=== PATIENT | female | born 1960 | race Caucasian/White ===

== ENCOUNTER 2016-12-16 19:01 | Inpatient (IN) | payer MEDICAID ==
[~2016-12-16] VITALS: Ht 165.1 cm; Wt 94.0 kg
[~2016-12-16 19:01] MED LIST: ADVAIR DISK1 IN; ADVAIR DISK1 INH; ADVAIR DISK1 NEB; ADVAIR DISK2 INH; ALBUTERO1 IN; ALBUTEROL S2.5 MG/.5 IN; ALBUTEROL SUL0.083 % IN; ALBUTEROL0.083 % IN; ALBUTEROL2.5 MG/31 IN; ALLEGRA180 MG PO; ALPRAZOLAM0.25 MG OR; ALPRAZOLAM0.5 M1 PO; ALPRAZOLAM0.5 MG PO; ALPRAZOLAM1 M3 PO; ALPRAZOLAM1 MG PO; AMLODIPINE10 MG OR; AMLODIPINE10 MG PO; AMOX/K CLAV875 M1 PO; AMOXICILLIN/CL250 MG PO; AMOXICILLIN250 M1 PO; APRAZOLAM PO; ATROVENT I0.5 MG/VIA IN; ATROVENT INH0.5 MG IN; ATROVENT NAS0.03 %; ATROVENT NAS0.03 % IN; AUGMENTIN250 MG PO; AUGMENTIN500TAB PO; AUGMENTIN875TAB OR; AVIDOXY100 MG PO; BI-PAP IN; CEFTIN250 MG PO; CEFTIN500 MG PO; CETIRIZ/PSE1 TAB PO; CHERATUSSIN OR; CHERATUSSIN PO; CIPRO500 MG PO; CLINDAMYCIN300 M1 PO; CLONAZEP ODT1 MG PO; CLONAZEPAM1 MG PO; DALIRESP500 MCG; DALIRESP500 MCG PO; DARVOCET-N100 MG OR; DELTASONE20 MG PO; DEPO-MEDROL80 MG/ML IM; DEXAMETHASON4 MG OR; DIGITEK0.25 MG OR; DIGOXIN0.125 MG PO; DIPHENHYDRAMINE50 M2 PO; DOCUSATE CAL240 MG PO; DOXYCYCL HYC100 MG PO; DUONEB IN; DUONEB INH; ELIMITE5 % EX; FIORICET PO; FLUTICASONE50 MCG; FUROSEMIDE40 MG PO; HYCODAN1 ML OR; HYDROCOD/HOM1 ML OR; HYDROXYZ HCL50 MG OR; HYDROXYZINE HCL25 MG OR; HYDROXYZINE HCL25 MG PO; IOPHEN C-NR1 ML PO; IPRATROPIUM BROMIDE IN; IPRATROPIUM BROMIDE/ IN; KEFLEX500 MG PO; KETOROLAC60 MG/2 ML IJ; LASIX 20 MG TAB20 MG OR; LASIX 20 MG TAB20 MG PO; LASIX 40 MG TAB40 MG OR; LASIX 40 MG TAB40 MG PO; LASIX40 MG PO; LEVAQUIN500 MG PO; LISINOPRIL10 MG OR; LISINOPRIL10 MG PO; LISINOPRIL5 MG PO; LORTAB 5-325 MG1 TAB PO; LORTAB 5/3255 MG PO; LORTAB 7.5-3251 TAB PO; Levaquin PO; MEDDOSEPAK OR; METFORMIN500 M1 OR; METFORMIN500 M1 PO; METFORMIN500 MG OR; METFORMIN500 MG PO; MORPHINE SUL15 MG PO; NAPROXEN375 MG PO; NAPROXEN500 MG OR; NORCO1 TA1 PO; NORVASC10 MG OR; OMNICEF300 MG PO; ONDANSETRON4 MG PO; OXY1; OXYGEN NAB; POT CHLORIDE10 ME1 PO; POT CHLORIDE10 MEQ OR; PREDNISONE1 MG PO; PREDNISONE10 MG OR; PREDNISONE10 MG PO; PREDNISONE20 MG PO; PREDNISONE5 MG PO; PROAIR HFA IN; PROVENTIL0.083 % IN; PULMICORT0.25 MG/2 IN; PULMICORT90 MCG IN; RESTORIL15 M1 OR; RESTORIL15 M1 PO; RESTORIL15 MG PO; ROBITUSSIN AC10 ML PO; SINGULAIR 10 MG10 MG PO; SINGULAIR OR; SINGULAIR PO; SINGULAIR10 MG PO; SMZ-TMP DS1 TAB PO; SOLU-MEDROL125 MG IM; SPIRIVA IN; STOOL SOFTNR OR; TEMAZEPAM15 MG PO; TESSALON PER100 MG PO; THEO-24300 MG OR; TORADOL30 MG/VIAL IJ; TORADOL30 MG/VIAL IM; TRAMADOL HCL50 MG PO; ULTRAM50 M1 PO; VENTOLIN HFA IN; VISTARIL25 MG PO; VOSOL2 % OT; XANAX0.25 MG OR; XANAX0.25 MG PO; XANAX1 MG PO; ZITHROMAX250 MG PO; ZOFRAN ODT4 MG PO; [UNRECOGNIZED DRUG - OTHER] EX
[2016-12-16 19:37] LABS: HEMATOCRIT 43.1 % (37.0-47.0); HEMOGLOBIN 13.3 g/dl (12.0-16.0); IMMATURE GRANULOCYTES 1.2 % (0.0-1.0); MEAN CELL VOLUME 90.4 fL CALC (80.0-100.0); MEAN CORPUSCULAR HGB 27.9 pG CALC (26.0-32.0); MEAN CORPUSCULAR HGB CONC 30.9 g/L CALC (32.0-36.0); NEUT# 10.12 thou/uL (2.00-7.15); RED BLOOD COUNT 4.77 mill/uL (4.20-5.60); RED CELL DISTRI WIDTH 13.4 % (11.5-15.5)
[2016-12-16 19:52] LABS: ALBUMIN 4.3 g/dL (3.2-5.0); ALKALINE PHOSPHATASE 98 u/l (38-126); ANION GAP 15 (6-22 (CALC)); BILIRUBIN, TOTAL 0.4 mg/dL (0.0-1.4); BUN 13 mg/dL (7-17); BUN/CREATININE RATIO 20 (12-20 (CALC)); CALCIUM 9.9 mg/dL (8.4-10.2); CARBON DIOXIDE 32 mmol/l (22-30); CHLORIDE 98 mmol/l (95-108); CREATININE 0.7 mg/dL (0.5-1.0); GFR > 60 ML/MIN (>=60 (CALC)); GFR FOR AFR.AMER. > 60 ML/MIN (>=60 (CALC)); GLUCOSE 142 mg/dL (65-105); POTASSIUM 4.3 mmol/l (3.5-5.1); SGOT/AST 18 u/l (14-36); SGPT/ALT 23 u/l (9-52); SODIUM 142 mmol/l (137-146); TOTAL PROTEIN 8.5 g/dL (6.3-8.2)
[2016-12-16 20:04] LABS: MYOGLOBIN 43 ng/mL (0 - 62)
[2016-12-16] MEDS ORDERED: XANAX1 MG PO (20:04)
[2016-12-16 21:16] VITALS: BP 130/82
[2016-12-16 22:00] VITALS: BP 124/69
[2016-12-16 22:15] VITALS: BP 144/80
[2016-12-16 22:30] VITALS: BP 110/67
[2016-12-16 22:45] VITALS: BP 126/78
[2016-12-16 23:00] VITALS: BP 126/78
[2016-12-16 23:12] LABS: URINE BILIRUBIN - DIPSTICK NEGATIVE (NEGATIVE); URINE BLOOD DIPSTICK NEGATIVE (NEGATIVE); URINE CLARITY SLIGHT CLOUDY; URINE COLOR YELLOW; URINE GLUCOSE - DIPSTICK NEGATIVE (NEGATIVE); URINE KETONE TRACE mg/dL (NEGATIVE); URINE LEUK ESTERASE NEGATIVE (NEGATIVE); URINE NITRITE - DIPSTICK NEGATIVE (Negative); URINE PH 5.5 (4.5-8.0); URINE PROTEIN - DIPSTICK NEGATIVE (NEG-TRACE); URINE SPECIFIC GRAVITY 1.015; URINE UROBILINOGEN - DIPSTICK 0.2 E.U./dL (0.2)
[2016-12-17] VITALS (14 sets, daily range): BP systolic 97–154; BP diastolic 56–88
[2016-12-17 05:10] LABS: HEMATOCRIT 39.9 % (37.0-47.0); HEMOGLOBIN 12.4 g/dl (12.0-16.0); IMMATURE GRANULOCYTES 0.9 % (0.0-1.0); MEAN CELL VOLUME 89.7 fL CALC (80.0-100.0); MEAN CORPUSCULAR HGB 27.9 pG CALC (26.0-32.0); MEAN CORPUSCULAR HGB CONC 31.1 g/L CALC (32.0-36.0); NEUT# 11.41 thou/uL (2.00-7.15); RED BLOOD COUNT 4.45 mill/uL (4.20-5.60); RED CELL DISTRI WIDTH 13.2 % (11.5-15.5)
[2016-12-17 05:37] LABS: ANION GAP 16 (6-22 (CALC)); BUN 16 mg/dL (7-17); BUN/CREATININE RATIO 27 (12-20 (CALC)); CALCIUM 9.5 mg/dL (8.4-10.2); CARBON DIOXIDE 27 mmol/l (22-30); CHLORIDE 100 mmol/l (95-108); CREATININE 0.6 mg/dL (0.5-1.0); GFR > 60 ML/MIN (>=60 (CALC)); GFR FOR AFR.AMER. > 60 ML/MIN (>=60 (CALC)); GLUCOSE 256 mg/dL (65-105); SODIUM 138 mmol/l (137-146)
[2016-12-17 05:39] LABS: POTASSIUM 5.2 mmol/l (3.5-5.1)
[2016-12-18] VITALS (8 sets, daily range): BP systolic 98–148; BP diastolic 64–76
[2016-12-18 07:02] LABS: ANION GAP 15 (6-22 (CALC)); BUN 23 mg/dL (7-17); BUN/CREATININE RATIO 33 (12-20 (CALC)); CALCIUM 9.7 mg/dL (8.4-10.2); CARBON DIOXIDE 31 mmol/l (22-30); CHLORIDE 97 mmol/l (95-108); CREATININE 0.7 mg/dL (0.5-1.0); GFR > 60 ML/MIN (>=60 (CALC)); GFR FOR AFR.AMER. > 60 ML/MIN (>=60 (CALC)); GLUCOSE 285 mg/dL (65-105); MAGNESIUM 1.8 mg/dL (1.6-2.3); POTASSIUM 4.8 mmol/l (3.5-5.1); SODIUM 138 mmol/l (137-146)
[2016-12-19 00:17] VITALS: BP 102/58
[2016-12-19 06:00] VITALS: BP 116/65
[2016-12-19 07:31] VITALS: BP 121/59
[2016-12-19 07:35] VITALS: BP 121/59
[2016-12-19] MEDS ORDERED: XANAX1 MG PO (12:11)
[2016-12-19] MEDS ORDERED: DOXYCYC MONO100 M2 PO (12:12)
[2016-12-19] MEDS ORDERED: PREDNISONE10 MG PO (12:13)
== END 2016-12-19 13:50 | disposition home or self-care (01) | DRG 191 ==
LOC: ENPENDDIS → ED 19:01 → ED-I 20:21 → ED 20:46 → ICU 20:47 → MS2 12-18 13:45
PROVIDERS: Emergency Medicine; Internal Medicine; ADMIT Internal Medicine; ATTEND Internal Medicine
PROC: 5A09357 Assistance with Respiratory Ventilation, Less than 24 Consecutive Hours, Continuous Positive Airway Pressure (ICD-10-PCS; principal; 2016-12-16)
DX: J44.1 Chronic obstructive pulmonary disease with (acute) exacerbation (principal); I50.22 Chronic systolic (congestive) heart failure; J96.11 Chronic respiratory failure with hypoxia; I11.0 Hypertensive heart disease with heart failure; Z99.81 Dependence on supplemental oxygen; J96.12 Chronic respiratory failure with hypercapnia; J44.0 Chronic obstructive pulmonary disease with (acute) lower respiratory infection; J20.9 Acute bronchitis, unspecified; A08.4 Viral intestinal infection, unspecified; E11.9 Type 2 diabetes mellitus without complications; I25.10 Atherosclerotic heart disease of native coronary artery without angina pectoris; G47.33 Obstructive sleep apnea (adult) (pediatric); E78.5 Hyperlipidemia, unspecified; M81.0 Age-related osteoporosis without current pathological fracture; F41.1 Generalized anxiety disorder; G89.29 Other chronic pain; R23.8 Other skin changes; Z87.891 Personal history of nicotine dependence; Z79.84 Long term (current) use of oral hypoglycemic drugs
CPT/HCPCS: J1650

== ENCOUNTER 2017-02-11 14:01 | Inpatient (IN) | payer MEDICAID ==
[~2017-02-11] VITALS: Ht 165.1 cm; Wt 95.0 kg
[~2017-02-11 14:01] MED LIST changes: +DOXYCYC MONO100 M2 PO
[2017-02-11 14:22] LABS: HEMATOCRIT 39.4 % (37.0-47.0); HEMOGLOBIN 12.3 g/dl (12.0-16.0); MEAN CORPUSCULAR HGB 28.1 pG CALC (26.0-32.0); MEAN CORPUSCULAR HGB CONC 31.2 g/L CALC (32.0-36.0); NEUT# 11.23 thou/uL (2.00-7.15); RED BLOOD COUNT 4.38 mill/uL (4.20-5.60); RED CELL DISTRI WIDTH 13.7 % (11.5-15.5)
[2017-02-11] MEDS ORDERED: PREDNISONE10 MG PO (14:27)
[2017-02-11] MEDS ORDERED: NORCO1 TA1 PO (14:28)
[2017-02-11 14:35] LABS: ALBUMIN 4.3 g/dL (3.2-5.0); ALKALINE PHOSPHATASE 79 u/l (38-126); ANION GAP 18 (6-22 (CALC)); BILIRUBIN, TOTAL 0.5 mg/dL (0.0-1.4); BUN 14 mg/dL (7-17); BUN/CREATININE RATIO 23 (12-20 (CALC)); CALCIUM 9.6 mg/dL (8.4-10.2); CARBON DIOXIDE 29 mmol/l (22-30); CHLORIDE 98 mmol/l (95-108); CREATININE 0.6 mg/dL (0.5-1.0); GFR > 60 ML/MIN (>=60 (CALC)); GFR FOR AFR.AMER. > 60 ML/MIN (>=60 (CALC)); GLUCOSE 221 mg/dL (65-105); POTASSIUM 4.8 mmol/l (3.5-5.1); SGOT/AST 22 u/l (14-36); SGPT/ALT 36 u/l (9-52); SODIUM 139 mmol/l (137-146); TOTAL PROTEIN 7.2 g/dL (6.3-8.2)
[2017-02-11 14:47] LABS: MYOGLOBIN 26 ng/mL (0 - 62)
[2017-02-11 16:07] LABS: URINE BILIRUBIN - DIPSTICK NEGATIVE (NEGATIVE); URINE BLOOD DIPSTICK NEGATIVE (NEGATIVE); URINE CLARITY CLEAR; URINE COLOR YELLOW; URINE GLUCOSE - DIPSTICK NEGATIVE (NEGATIVE); URINE KETONE NEGATIVE (NEGATIVE); URINE LEUK ESTERASE TRACE (NEGATIVE); URINE NITRITE - DIPSTICK NEGATIVE (Negative); URINE PH 5.5 (4.5-8.0); URINE PROTEIN - DIPSTICK NEGATIVE (NEG-TRACE); URINE SPECIFIC GRAVITY <=1.005; URINE UROBILINOGEN - DIPSTICK 0.2 E.U./dL (0.2)
[2017-02-11 17:55] LABS: BARBITURATES NEGATIVE (NEGATIVE); COCAINE NEGATIVE (NEGATIVE); METHADONE NEGATIVE (NEGATIVE); OXCYCODONE NEGATIVE (NEGATIVE); TETRAHYDROCANNABIONOL NEGATIVE (NEGATIVE); TRICYLIC ANTIDEPRESSANTS NEGATIVE (NEGATIVE)
[2017-02-11 20:00] VITALS: BP 103/53; BP 127/69
[2017-02-11 21:00] VITALS: BP 108/55; BP 115/60
[2017-02-11 22:00] VITALS: BP 115/60
[2017-02-11 23:00] VITALS: BP 117/56
[2017-02-12] VITALS (23 sets, daily range): BP systolic 90–117; BP diastolic 47–66
[2017-02-12 06:18] LABS: ANION GAP 15 (6-22 (CALC)); BUN 17 mg/dL (7-17); BUN/CREATININE RATIO 27 (12-20 (CALC)); CALCIUM 9.7 mg/dL (8.4-10.2); CARBON DIOXIDE 32 mmol/l (22-30); CHLORIDE 100 mmol/l (95-108); CREATININE 0.6 mg/dL (0.5-1.0); GFR > 60 ML/MIN (>=60 (CALC)); GFR FOR AFR.AMER. > 60 ML/MIN (>=60 (CALC)); GLUCOSE 258 mg/dL (65-105); MAGNESIUM 1.6 mg/dL (1.6-2.3); POTASSIUM 4.9 mmol/l (3.5-5.1); SODIUM 141 mmol/l (137-146)
[2017-02-13] VITALS (9 sets, daily range): BP systolic 83–116; BP diastolic 43–61
[2017-02-13 04:55] LABS: ANION GAP 13 (6-22 (CALC)); BUN 24 mg/dL (7-17); BUN/CREATININE RATIO 37 (12-20 (CALC)); CALCIUM 9.2 mg/dL (8.4-10.2); CARBON DIOXIDE 31 mmol/l (22-30); CHLORIDE 101 mmol/l (95-108); CREATININE 0.6 mg/dL (0.5-1.0); GFR > 60 ML/MIN (>=60 (CALC)); GFR FOR AFR.AMER. > 60 ML/MIN (>=60 (CALC)); GLUCOSE 307 mg/dL (65-105); MAGNESIUM 1.9 mg/dL (1.6-2.3); POTASSIUM 4.9 mmol/l (3.5-5.1); SODIUM 140 mmol/l (137-146)
[2017-02-13] MEDS ORDERED: XANAX1 MG PO (11:12)
[2017-02-13] MEDS ORDERED: PREDNISONE10 MG PO (11:12)
[2017-02-13] MEDS ORDERED: LEVEMIR FL100 UNIT/M SC (11:14)
[2017-02-13] MEDS ORDERED: ROBITUSSIN AC10 ML PO (11:15)
[2017-02-13] MEDS ORDERED: DOXYCYCL HYC100 MG PO (11:15)
[2017-02-13] MEDS ORDERED: CYMBALTA20 MG PO (11:16)
== END 2017-02-13 13:00 | disposition home or self-care (01) | DRG 189 ==
LOC: ENPENDDIS → ED 14:01 → ED-I 15:54 → ED 16:17 → ICU 16:18
PROVIDERS: Emergency Medicine; Internal Medicine; ADMIT Internal Medicine; ATTEND Internal Medicine
PROC: 5A09457 Assistance with Respiratory Ventilation, 24-96 Consecutive Hours, Continuous Positive Airway Pressure (ICD-10-PCS; principal; 2017-02-11)
DX: J96.22 Acute and chronic respiratory failure with hypercapnia (principal); Z99.81 Dependence on supplemental oxygen; J44.0 Chronic obstructive pulmonary disease with (acute) lower respiratory infection; J44.1 Chronic obstructive pulmonary disease with (acute) exacerbation; J96.21 Acute and chronic respiratory failure with hypoxia; J20.9 Acute bronchitis, unspecified; M81.8 Other osteoporosis without current pathological fracture; F41.1 Generalized anxiety disorder; G89.29 Other chronic pain; M54.9 Dorsalgia, unspecified; E09.65 Drug or chemical induced diabetes mellitus with hyperglycemia; T38.0X5A Adverse effect of glucocorticoids and synthetic analogues, initial encounter; Z87.891 Personal history of nicotine dependence; Z79.84 Long term (current) use of oral hypoglycemic drugs

== ENCOUNTER 2017-02-28 16:09 | Inpatient (IN) | payer MEDICAID ==
[~2017-02-28] VITALS: Ht 165.1 cm; Wt 75.0 kg
[2017-02-28] VITALS (7 sets, daily range): BP systolic 107–138; BP diastolic 71–79
[~2017-02-28 16:09] MED LIST changes: +CYMBALTA20 MG PO; +LEVEMIR FL100 UNIT/M SC
--- NOTE | 2017-02-28 16:10 | NUR ---
PT IMMEDIATELY TO ROOM [address] MOTA TO BEDSIDE. PT PLACED ON PRODUCT MANAGEMENT INTERN, PT STATES TO , "CAN I PLEASE HAVE THE BIPAP, DOC? I KNOW IT'LL HELP ME"
[2017-02-28 16:55] LABS: HEMATOCRIT 40.2 % (37.0-47.0); HEMOGLOBIN 12.4 g/dl (12.0-16.0); IMMATURE GRANULOCYTES 1.3 % (0.0-1.0); MEAN CELL VOLUME 91.8 fL CALC (80.0-100.0); MEAN CORPUSCULAR HGB 28.3 pG CALC (26.0-32.0); MEAN CORPUSCULAR HGB CONC 30.8 g/L CALC (32.0-36.0); NEUT# 9.76 thou/uL (2.00-7.15); RED BLOOD COUNT 4.38 mill/uL (4.20-5.60); RED CELL DISTRI WIDTH 13.5 % (11.5-15.5)
--- NOTE | 2017-02-28 17:05 | NUR ---
RT IN TO PLACE BI-PAP
[2017-02-28 17:23] LABS: ALBUMIN 4.1 g/dL (3.2-5.0); ALKALINE PHOSPHATASE 89 u/l (38-126); ANION GAP 14 (6-22 (CALC)); BILIRUBIN, TOTAL 0.3 mg/dL (0.0-1.4); BUN 17 mg/dL (7-17); BUN/CREATININE RATIO 25 (12-20 (CALC)); CALCIUM 9.3 mg/dL (8.4-10.2); CARBON DIOXIDE 36 mmol/l (22-30); CHLORIDE 96 mmol/l (95-108); CREATININE 0.7 mg/dL (0.5-1.0); GFR > 60 ML/MIN (>=60 (CALC)); GFR FOR AFR.AMER. > 60 ML/MIN (>=60 (CALC)); GLUCOSE 271 mg/dL (65-105); POTASSIUM 4.4 mmol/l (3.5-5.1); SGOT/AST 17 u/l (14-36); SGPT/ALT 42 u/l (9-52); SODIUM 141 mmol/l (137-146); TOTAL PROTEIN 7.1 g/dL (6.3-8.2)
[2017-02-28 17:35] LABS: MYOGLOBIN 23 ng/mL (0 - 62)
--- NOTE | 2017-02-28 17:55 | NUR ---
IN TO ASSIST TO BSC, Pt BACK TO BED AND STATES "WHERE'd MY IV GO?" S.L. IN RAC GONE. NEW IV INITIATED /c BRISK BLOOD RETURN NOTED.
--- NOTE | 2017-02-28 18:28 | NUR ---
IN TO ASSESS, ASSESSMENT UNCHANGED
[2017-02-28] MEDS ORDERED: LISINOPRIL5 MG PO (19:02)
[2017-02-28] MEDS ORDERED: PREDNISONE10 MG PO (19:03)
[2017-02-28] MEDS ORDERED: METFORMIN500 MG PO (19:04)
[2017-02-28] MEDS ORDERED: RESTORIL15 MG PO (19:05)
[2017-02-28] MEDS ORDERED: MONTELUKAST SOD10 MG PO (19:05)
--- NOTE | 2017-02-28 19:05 | NUR ---
CARE OF Pt ENDORSED TO Mary Anne GONZALEZ
[2017-02-28] MEDS ORDERED: DALIRESP500 MCG PO (19:06)
[2017-02-28] MEDS ORDERED: NORCO1 TA1 PO (19:07)
[2017-02-28] MEDS ORDERED: XANAX1 MG PO (19:07)
--- NOTE | 2017-02-28 19:22 | NUR ---
RECEIVED REPORT FROM LISA NOLASCO PT HAS ADMIT ORDERS, WAITING ON ICU TO TAKE REPORT. PT OFFERED DINNER TRAY AND GRILLED CHEESE BURNT SO PT ASKED FOR TURKEY SANDWICH. PT THEN REFUSED SANDWICH STATING BREAD IS HARD. PT TOOK DIET SODA AND PINEAPPLE OFF TRAY.
--- NOTE | 2017-02-28 19:56 | NUR ---
Admission Note Report Given to: LISA MCNAIR. Transported by: Wheelchair X Stretcher Transported with: X Nurse Transporter X Patent IV X O2 X Meat Pickler
--- NOTE | 2017-02-28 20:08 | NUR ---
PT. ARRIVES BY ER STRETCHER WITH BIPAP IN PLACE AT THIS TIME. PT. AMBULATORY WITH STEADY GAIT FROM ER STRETCHER TO STANDING SCALE, AND THEN TO ICU BED IN NO DISTRESS. REFUSES TO REMOVE PANTS AT THIS TIME. RESPS EVEN, SHALLOW, SLIGHTLY LABORED. SKIN COOL AND DRY. PEARL. GUZMAN. C/O 02/14 CHRONIC ABDOMINAL PAIN FROM HER "GALLBLADDER". STATES HER PAIN IS NO DIFFERENT THAN NORMAL AND SHE USUALLY TAKES HYDROCODONE AND "IT DOESN'T HELP". DIMINISHED LUNG SOUND THROUGHOUT WITH SCANT EXPIRATORY WHEEZES. 1+ EDEMA NOTED BILATERALLY. KLEVER REYES APPLIED AT THIS TIME.
--- NOTE | 2017-02-28 23:30 | NUR ---
PT. PROVIDED WITH TURKEY SANDWICH PER HER REQUEST. PLACED ON 4L NC FROM BEING ON BIPAP AT THIS TIME. NEW ORDERS RECEIVED FROM DR. YOUNG FOR PATIENT ROUTINE ANXIOLYTICS. WILL CONTINUE TO MONITOR FOR RESPIRATORY DISTRESS AND ANXIETY. PT. DENIES COMPLAINTS OR NEEDS AT THIS TIME.
[2017-03-01] VITALS (17 sets, daily range): BP systolic 78–129; BP diastolic 49–88
--- NOTE | 2017-03-01 00:10 | NUR ---
PT. PLACED BACK ON BIPAP AT THIS TIME PER HER REQUEST. RT BACK AT BEDSIDE TO ADJUST MASK AND BIPAP. PT. OFFERED ANXIOLYTIC AND HER PAIN MEDICATIONS. UPDATED ON PLAN OF CARE AND MEDICATION REGIMENS. WILL CONTINUE TO ASSESS. VSS. CALL LIGHT REMAINS WITHIN REACH.
--- NOTE | 2017-03-01 02:05 | NUR ---
PT. RESTING IN BED IN NO DISTRESS. SLEEPING WITH BIPAP IN PLACE. VSS. SLIGHTLY HYPOTENSIVE AT THIS TIME. CALL LIGHT REMAINS WITHIN REACH. VOICES NO COMPLAINTS OR CONCERNS. WILL CONTINUE TO MONITOR
--- NOTE | 2017-03-01 04:00 | NUR ---
PT. REMAINS RESTFUL ON THE BIPAP. SKIN REMAINS WARM AND DRY. AFEBRILE. DENIES COMPLAINTS OF PAIN OR NEED AT THIS TIME. VSS. WILL CONTINUE TO MONITOR.
--- NOTE | 2017-03-01 05:30 | NUR ---
PT. AWAKE, ALERT, ORIENTED X 3. ASSISTED TO BEDSIDE COMMODE AT THIS TIME. AMBULATORY WITH SLOW STEADY GAIT. BIPAP REMAINS IN PLACE.
--- NOTE | 2017-03-01 07:15 | NUR ---
PT LAYING IN WATCHING TV, A & O X3, PERRL, HR 97, RESP. 22, BP 102/64, O2 94% ON BIPAP WITH 36% O2, DIMINISHED LUNG SOUNDS IN ALL LUNG BERNARDO WITH EXPIRATORY WHEEZES IN RUL & KARMEN, RUQ TENDERNESS, 20G RAC IV SALINE LOCKED, BILAT LEG EDEMA, AM ASSESSMENT COMPLETE, SEE INTERVENTION, SAFETY MEASURES REINFORCED, CALL ESCOBAR WITHIN REACH
--- NOTE | 2017-03-01 07:25 | NUR ---
PT TAKEN OFF BIPAP FOR AM MEAL
--- NOTE | 2017-03-01 07:30 | NUR ---
SETUP ASSISTANCE PROVIDED WITH ASHLEY CHRISTIANSON
--- NOTE | 2017-03-01 08:15 | NUR ---
PT LAYING IN BED RESTING WITH EYES OPEN, VERBALIZES NO COMPLAINTS, PT REMINDED TO CALL FOR ASSISTANCE, CALL ESCOBAR WITHIN REACH
--- NOTE | 2017-03-01 09:20 | NUR ---
PT ASSISTED TO BSC AND BACK TO BED, PT AMBULATED WITH A SLOW STEADY GAIT, TOLERATED WELL, CALL ESCOBAR WITHIN REACH
--- NOTE | 2017-03-01 10:30 | NUR ---
PT LAYING IN BED RESTING WITH EYES CLOSED, AROUSES EASILY TO VERBAL STIMULI, BREATHING UNLABORED, CALL ESCOBAR WITHIN REACH
--- NOTE | 2017-03-01 11:30 | NUR ---
SETUP ASSISTANCE PROVIDED WITH LUNCH TRAY
--- NOTE | 2017-03-01 12:05 | NUR ---
PT LAYING IN BED TALKING ON HER CELL PHONE, NO S/S OF DISTRESS, CALL ESCOBAR WITHIN REACH
--- NOTE | 2017-03-01 14:20 | NUR ---
PT RESTING IN BED WITH EYES CLOSED AROUSES EASILY TO VERBAL STIMULI, RESP. UNLABORED, CALL ESCOBAR WITHIN REACH
--- NOTE | 2017-03-01 16:40 | NUR ---
PT SITTING UP IN BED TALKING ON THE PHONE, NO S/S OF DISTRESS
--- NOTE | 2017-03-01 20:00 | NUR ---
PT. AWAKE, ALERT, ORIENTED X 3. SKIN WARM AND DRY. PETRA. PT. ASSISTED TO BEDSIDE COMMODE. LUNGS DIMINIESHED THROUGHOUT WITH EXP WHEEZES. PT. REQUESTING TO BE PLACED ON BIPAP AT THIS TIME. PT. PLACED ON PER HER REQUEST. NO DISTRESS, REMAINS WITH HER NORMAL SHALLOW RESPIRATIONS.
--- NOTE | 2017-03-01 21:35 | NUR ---
REPORT TO VICKI NICK.
--- NOTE | 2017-03-01 21:50 | NUR ---
PT TRANSFERRED TO MED/SURG VIA HOSPITAL BED IN STABLE CONDITION ACCOMPANIED BY TABBYRN;PT ORIENTED TO ROOM AND CALL LIGHT SYSTEM AND VERBALIZES UNDERSTANDING;ASSESSMENT COMPLETED;IV SITE TO RAC FLUSHED AND PATENT;PT IS ON HER HOME BIPAP AT THIS TIME 02 SATS @ 97%;PT A&O X 3;PT DENIES ANY NEEDS AT THIS TIME;SAFETY PRECAUTIONS REINFORCED;FALL PRECAUTIONS IN PLACE;CALL LIGHT IN REACH;WILL CONTINUE TO MONITOR
--- NOTE | 2017-03-01 23:50 | NUR ---
PT RESTING IN SEMI FOWLERS POSITION WITH HOME BIPAP ON;PT DENIES ANY PAIN AT THIS TIME AND REFUSES SCHEDULED LORTAB;COMMODE AT BEDSIDE;CALL LIGHT WITHIN REACH;WILL CONTINUE TO MONITOR
[2017-03-02 04:00] VITALS: BP 95/60
--- NOTE | 2017-03-02 04:05 | NUR ---
PT RESTING IN SEMI FOWLERS POSITION;PTS HOME BIPAP ON AT THIS TIME WITH RESPIRATIONS EVEN AND UNLABORED;PT REFUSES SCHEDULED LORTAB DENYING ANY PAIN;TELE MONITOR IN PLACE;PT EDUCATED TO CALL FOR ASSISTANCE IF NEEDED;COMMODE AT BEDSIDE;CALL LIGHT WITHIN REACH;WILL CONTINUE TO MONITOR
[2017-03-02 06:02] LABS: HEMATOCRIT 39.9 % (37.0-47.0); HEMOGLOBIN 12.2 g/dl (12.0-16.0); IMMATURE GRANULOCYTES 1.3 % (0.0-1.0); MEAN CELL VOLUME 92.4 fL CALC (80.0-100.0); MEAN CORPUSCULAR HGB 28.2 pG CALC (26.0-32.0); MEAN CORPUSCULAR HGB CONC 30.6 g/L CALC (32.0-36.0); NEUT# 14.75 thou/uL (2.00-7.15); RED BLOOD COUNT 4.32 mill/uL (4.20-5.60); RED CELL DISTRI WIDTH 13.6 % (11.5-15.5)
[2017-03-02 06:16] LABS: ANION GAP 17 (6-22 (CALC)); BUN 27 mg/dL (7-17); BUN/CREATININE RATIO 40 (12-20 (CALC)); CALCIUM 9.3 mg/dL (8.4-10.2); CARBON DIOXIDE 31 mmol/l (22-30); CHLORIDE 95 mmol/l (95-108); CREATININE 0.7 mg/dL (0.5-1.0); GFR > 60 ML/MIN (>=60 (CALC)); GFR FOR AFR.AMER. > 60 ML/MIN (>=60 (CALC)); GLUCOSE 333 mg/dL (65-105); POTASSIUM 4.4 mmol/l (3.5-5.1); SODIUM 138 mmol/l (137-146)
--- NOTE | 2017-03-02 07:00 | NUR ---
RECEIVED BEDSIDE REPORT FROM PARK COHEN. RESTING IN BED WITH EYES CLOSED. RESPS VIA HOME BIPAP, TELE MONITOR IN PLACE. VOICES NO NEEDS AT THIS TIME. PLAN OF CARE DISCUSSED. SAFETY PRECAUTIONS REINFORCED. BED IN LOWEST POSITION WITH WHEELS LOCKED. CALL LIGHT WITHIN REACH. ENCOURAGED PT TO CALL FOR ANY NEEDS.
[2017-03-02 07:45] VITALS: BP 115/64
[2017-03-02 11:00] VITALS: BP 130/47
--- NOTE | 2017-03-02 13:01 | NUR ---
SITTING ON EDGE OF BED. RESPS EVEN AND UNLABORED ON O2 VIA NC, TELE MONITOR IN PLACE. MEDICATED WITH ROBITUSSIN PO C/O COUGH. WILL CONTINUE TO MONITOR.
--- NOTE | 2017-03-02 13:20 | NUR ---
DR HERNANDEZ IN TO SEE PT, NEW ORDERS RECEIVED.
[2017-03-02 16:05] VITALS: BP 132/77
--- NOTE | 2017-03-02 18:24 | NUR ---
SITTING ON SIDE OF BED EATING MEAL. RESPS EVEN AN DUNLABORED ON O2 VIA NC, TELE MONITOR IN PLACE. MEDICATED WITH LORTAB PO FOR C/O 710 ABD PAIN. CALL LIGHT WITHIN REACH. WILL CONTINUE TO MONITOR.
[2017-03-02 19:45] VITALS: BP 138/74
--- NOTE | 2017-03-02 21:15 | NUR ---
PT RESTING AT BEDSIDE;ASSESSMENT COMPLETED;PT DENIES ANY PAIN OR NEEDS AT THIS TIME;02 ON @ 4 LITERS HUM.VIA NC;HOME BIPAP AT BEDSIDE; IV SITE TO RAC FLUSHED AND PATENT;TELE MONITOR IN PLACE;SKIN INTACT;PT EDUCATED TO CALL FOR ASSISTANCE IF NEEDED;SAFETY PRECAUTIONS REINFORCED;BED IN LOWEST POSITION WITH COMMODE AT BEDSIDE;CALL LIGHT IN REACH;WILL CONTINUE TO MONITOR
[2017-03-03 00:35] VITALS: BP 132/78
--- NOTE | 2017-03-03 00:35 | NUR ---
PT APPEARS TO BE SLEEPING AT THIS TIME;NO S/S OF DISTRESS NOTED;RESPIRATIONS EVEN AND UNLABORED ON HOME BIPAP;TELE MONITOR IN PLACE;BED IN LOWEST POSITION WITH CALL LIGHT IN REACH;WILL CONTINUE TO MONITOR
[2017-03-03 04:55] VITALS: BP 138/72
--- NOTE | 2017-03-03 04:55 | NUR ---
PT APPEARS TO BE SLEEPING IN SEMI FOWLERS POSITION;HOME BIPAP ON WITH RESPIRATIONS EVEN AND UNLABORED;WOKE PT TO OBTAIN MORNING VS AND LABS;PT DENIES ANY NEEDS OR PAINS AT THIS TIME;TELE MONITOR IN PLACE;CALL LIGHT IN REACH;WILL CONTINUE TO MONITOR
[2017-03-03 05:22] LABS: HEMATOCRIT 39.5 % (37.0-47.0); HEMOGLOBIN 12.2 g/dl (12.0-16.0); IMMATURE GRANULOCYTES 1.2 % (0.0-1.0); MEAN CELL VOLUME 91.6 fL CALC (80.0-100.0); MEAN CORPUSCULAR HGB 28.3 pG CALC (26.0-32.0); MEAN CORPUSCULAR HGB CONC 30.9 g/L CALC (32.0-36.0); NEUT# 11.09 thou/uL (2.00-7.15); RED BLOOD COUNT 4.31 mill/uL (4.20-5.60); RED CELL DISTRI WIDTH 13.9 % (11.5-15.5)
[2017-03-03 05:46] LABS: ANION GAP 14 (6-22 (CALC)); BUN 30 mg/dL (7-17); BUN/CREATININE RATIO 47 (12-20 (CALC)); CALCIUM 9.6 mg/dL (8.4-10.2); CARBON DIOXIDE 32 mmol/l (22-30); CHLORIDE 96 mmol/l (95-108); CREATININE 0.6 mg/dL (0.5-1.0); GFR > 60 ML/MIN (>=60 (CALC)); GFR FOR AFR.AMER. > 60 ML/MIN (>=60 (CALC)); GLUCOSE 312 mg/dL (65-105); POTASSIUM 4.4 mmol/l (3.5-5.1); SODIUM 138 mmol/l (137-146)
--- NOTE | 2017-03-03 07:00 | NUR ---
RECEIVED BEDSIDE REPORT FROM PARK COHEN. RESTING IN SEMI FOWLERS WITH EYES OPEN. RESPS EVEN AND UNLABORED ON HOME BIPAP, TELE MONITOR IN PLACE. VOICES NO NEEDS AT THIS TIME. SAFETY PRECAUTIONS REINFORCED. BED IN LOWEST POSITION WITH WHEELS LOCKED. CALL LIGHT WITHIN REACH. ENCOURAGED PT TO CALL FOR ANY NEEDS.
[2017-03-03 07:53] VITALS: BP 105/64
--- NOTE | 2017-03-03 10:00 | NUR ---
DR HERNANDEZ IN TO SEE PT, NEW ORDERS RECEIVED.
[2017-03-03] MEDS ORDERED: NORCO1 TA1 PO (11:43)
[2017-03-03] MEDS ORDERED: LEVEMIR FL100 UNIT/M SC (11:43)
[2017-03-03] MEDS ORDERED: DOXYCYCL HYC100 MG PO (11:43)
[2017-03-03] MEDS ORDERED: PREDNISONE10 MG PO (11:43)
--- NOTE | 2017-03-03 12:00 | NUR ---
SITTING ON EDGE OF BED EATING LUNCH. RESPS EVEN AND UNLABORED ON O2 VIA NC, TELE MONITOR IN PLACE. VOICES NO NEEDS AT THIS TIME. CALL LIGHT WITHIN REACH. ENCOURAGED PT TO CALL FOR ANY NEEDS.
[2017-03-03 12:19] VITALS: BP 131/82
--- NOTE | 2017-03-03 14:07 | NUR ---
Discharge instructions given. Patient verbalizes understanding of same. Discharged in stable condition via Wheelchair to Home with spouse. All belongings sent with pt.
== END 2017-03-03 14:05 | disposition home health service (06) | DRG 189 ==
LOC: ENPENDDIS → ED 16:09 → ED-I 17:35 → ED 18:09 → ICU 18:10 → MS2 03-01 20:23
PROVIDERS: Emergency Medicine; Internal Medicine; ADMIT Internal Medicine; ATTEND Internal Medicine
PROC: 5A09357 Assistance with Respiratory Ventilation, Less than 24 Consecutive Hours, Continuous Positive Airway Pressure (ICD-10-PCS; principal; 2017-02-28)
DX: J96.21 Acute and chronic respiratory failure with hypoxia (principal); Z99.81 Dependence on supplemental oxygen; I11.0 Hypertensive heart disease with heart failure; I50.9 Heart failure, unspecified; J44.0 Chronic obstructive pulmonary disease with (acute) lower respiratory infection; J44.1 Chronic obstructive pulmonary disease with (acute) exacerbation; K62.5 Hemorrhage of anus and rectum; I25.10 Atherosclerotic heart disease of native coronary artery without angina pectoris; J20.9 Acute bronchitis, unspecified; F32.9 Major depressive disorder, single episode, unspecified; E09.65 Drug or chemical induced diabetes mellitus with hyperglycemia; T38.0X5S Adverse effect of glucocorticoids and synthetic analogues, sequela; M81.8 Other osteoporosis without current pathological fracture; G47.30 Sleep apnea, unspecified; F41.1 Generalized anxiety disorder; G89.29 Other chronic pain; L98.9 Disorder of the skin and subcutaneous tissue, unspecified; M54.9 Dorsalgia, unspecified; Z87.01 Personal history of pneumonia (recurrent); Z87.891 Personal history of nicotine dependence; Z79.84 Long term (current) use of oral hypoglycemic drugs; Z79.4 Long term (current) use of insulin; Z91.14 Patient's other noncompliance with medication regimen

== ENCOUNTER 2017-04-16 10:08 | Emergency (ER) | payer MEDICAID ==
[~2017-04-16] VITALS: Ht 165.1 cm; Wt 95.2 kg
[~2017-04-16 10:08] MED LIST changes: +MONTELUKAST SOD10 MG PO
[2017-04-16 10:50] LABS: HEMATOCRIT 41.9 % (37.0-47.0); HEMOGLOBIN 12.9 g/dl (12.0-16.0); IMMATURE GRANULOCYTES 1.1 % (0.0-1.0); MEAN CELL VOLUME 90.7 fL CALC (80.0-100.0); MEAN CORPUSCULAR HGB 27.9 pG CALC (26.0-32.0); MEAN CORPUSCULAR HGB CONC 30.8 g/L CALC (32.0-36.0); NEUT# 10.03 thou/uL (2.00-7.15); RED BLOOD COUNT 4.62 mill/uL (4.20-5.60); RED CELL DISTRI WIDTH 13.3 % (11.5-15.5)
[2017-04-16 10:55] LABS: ALBUMIN 4.2 g/dL (3.2-5.0); ALKALINE PHOSPHATASE 95 u/l (38-126); ANION GAP 17 (6-22 (CALC)); BILIRUBIN, TOTAL 0.6 mg/dL (0.0-1.4); BUN 12 mg/dL (7-17); BUN/CREATININE RATIO 20 (12-20 (CALC)); CALCIUM 9.4 mg/dL (8.4-10.2); CARBON DIOXIDE 30 mmol/l (22-30); CHLORIDE 98 mmol/l (95-108); CREATININE 0.6 mg/dL (0.5-1.0); GFR > 60 ML/MIN (>=60 (CALC)); GFR FOR AFR.AMER. > 60 ML/MIN (>=60 (CALC)); GLUCOSE 261 mg/dL (65-105); POTASSIUM 4.4 mmol/l (3.5-5.1); SGOT/AST 25 u/l (14-36); SGPT/ALT 36 u/l (9-52); SODIUM 141 mmol/l (137-146); TOTAL PROTEIN 7.9 g/dL (6.3-8.2)
[2017-04-16 11:08] LABS: MYOGLOBIN 31 ng/mL (0 - 62)
[2017-04-16 11:40] LABS: URINE BILIRUBIN - DIPSTICK NEGATIVE (NEGATIVE); URINE BLOOD DIPSTICK NEGATIVE (NEGATIVE); URINE CLARITY CLEAR; URINE COLOR YELLOW; URINE GLUCOSE - DIPSTICK NEGATIVE (NEGATIVE); URINE KETONE NEGATIVE (NEGATIVE); URINE NITRITE - DIPSTICK NEGATIVE (Negative); URINE PROTEIN - DIPSTICK NEGATIVE (NEG-TRACE); URINE UROBILINOGEN - DIPSTICK 0.2 E.U./dL (0.2)
[2017-04-16 12:18] LABS: URINE LEUK ESTERASE NEGATIVE (NEGATIVE)
[2017-04-16] MEDS ORDERED: PREDNISONE50 MG PO (12:55)
[2017-04-16] MEDS ORDERED: XANAX0.25 MG PO (12:55)
[2017-04-16 13:56] VITALS: BP 135/69
== END 2017-04-16 14:45 | disposition home or self-care (01) | DRG 192 ==
LOC: ED 10:08
PROVIDERS: Emergency Medicine
DX: J44.9 Chronic obstructive pulmonary disease, unspecified (principal); I11.0 Hypertensive heart disease with heart failure; I50.9 Heart failure, unspecified; Z99.81 Dependence on supplemental oxygen; F41.9 Anxiety disorder, unspecified; E11.9 Type 2 diabetes mellitus without complications; G47.30 Sleep apnea, unspecified; F32.9 Major depressive disorder, single episode, unspecified; G89.29 Other chronic pain; M54.9 Dorsalgia, unspecified
CPT/HCPCS: J2060

== ENCOUNTER 2017-07-29 18:18 | Inpatient (IN) | payer MEDICAID ==
[~2017-07-29] VITALS: Ht 160 cm; Wt 74.4 kg
[~2017-07-29 18:18] MED LIST changes: +PREDNISONE50 MG PO
--- NOTE | 2017-07-29 18:18 | NUR ---
PT TO ROOM VIA EMS
[2017-07-29 18:59] LABS: URINE BILIRUBIN - DIPSTICK NEGATIVE (NEGATIVE); URINE BLOOD DIPSTICK NEGATIVE (NEGATIVE); URINE COLOR YELLOW; URINE GLUCOSE - DIPSTICK NEGATIVE (NEGATIVE); URINE KETONE NEGATIVE (NEGATIVE); URINE LEUK ESTERASE NEGATIVE (NEGATIVE); URINE NITRITE - DIPSTICK NEGATIVE (Negative); URINE PH 5.5 (4.5-8.0); URINE PROTEIN - DIPSTICK NEGATIVE (NEG-TRACE); URINE UROBILINOGEN - DIPSTICK 0.2 E.U./dL (0.2)
--- NOTE | 2017-07-29 19:00 | NUR ---
BREATHING TREATMENT GIVEN. BREATHING TECH. FOR GOOD DEPOSITION TO THE LUNGS. PLACED ON BIPAP. ABG RESULT ON [employer].
[2017-07-29 19:04] LABS: URINE CLARITY CLEAR
[2017-07-29 19:09] LABS: HEMATOCRIT 42.6 % (37.0-47.0); HEMOGLOBIN 13.1 g/dl (12.0-16.0); IMMATURE GRANULOCYTES 1.1 % (0.0-1.0); MEAN CELL VOLUME 90.1 fL CALC (80.0-100.0); MEAN CORPUSCULAR HGB 27.7 pG CALC (26.0-32.0); MEAN CORPUSCULAR HGB CONC 30.8 g/L CALC (32.0-36.0); NEUT# 12.26 thou/uL (2.00-7.15); RED BLOOD COUNT 4.73 mill/uL (4.20-5.60); RED CELL DISTRI WIDTH 14.2 % (11.5-15.5)
--- NOTE | 2017-07-29 19:17 | NUR ---
ABG DONE, RT NOW PLACES PT ON BiPAP.
[2017-07-29 19:48] LABS: ALBUMIN 4.2 g/dL (3.2-5.0); ALKALINE PHOSPHATASE 116 u/l (38-126); ANION GAP 19 (6-22 (CALC)); BILIRUBIN, TOTAL 0.5 mg/dL (0.0-1.4); BUN 12 mg/dL (7-17); BUN/CREATININE RATIO 18 (12-20 (CALC)); CALCIUM 10.1 mg/dL (8.4-10.2); CARBON DIOXIDE 30 mmol/l (22-30); CHLORIDE 98 mmol/l (95-108); CREATININE 0.7 mg/dL (0.5-1.0); GFR > 60 ML/MIN (>=60 (CALC)); GFR FOR AFR.AMER. > 60 ML/MIN (>=60 (CALC)); GLUCOSE 208 mg/dL (65-105); POTASSIUM 4.2 mmol/l (3.5-5.1); SGOT/AST 23 u/l (14-36); SGPT/ALT 33 u/l (9-52); SODIUM 143 mmol/l (137-146); TOTAL PROTEIN 7.2 g/dL (6.3-8.2)
[2017-07-29 19:59] LABS: MYOGLOBIN 48 ng/mL (0 - 62)
[2017-07-29] MEDS ORDERED: PREDNISONE10 MG PO (20:57)
[2017-07-29] MEDS ORDERED: METFORMIN500 MG PO (20:59)
[2017-07-29] MEDS ORDERED: HYDROXYZ HCL25 MG PO (21:02)
[2017-07-29] MEDS ORDERED: OXY1 (21:06)
[2017-07-29 22:15] VITALS: BP 153/66
--- NOTE | 2017-07-29 22:26 | NUR ---
PT TAKEN TO ICU WITHOUT INCIDENT, REPORT WAS TO JOS.
--- NOTE | 2017-07-29 22:30 | NUR ---
FROM ER TO ICU B7, VIA STRETCHER, FIREPROOF DOOR ASSEMBLER, OXYGEN 4LPM VIA NC, RT, MICHELLE, PLACED BIPAP UPON ARRIVAL, PT SCOOTED OVER WITH ASSISTANCE FROM STRETCHER TO BED, MILD ANXIETY NOTED, VSS, AFEBRILE, SR ON THE MONITOR, HR 94, RESP ARE SLIGHTLY LABORED, INSTRUCTED ON BREATHING EXERCISES, RT ADMINISTERING A BREATHING TX UPON ARRIVAL, PT IS A/O X3, C/O MILD HEADACHE, REQUESTING XANAX, AND PAIN MEDICATION, ROCEPHIN INFUSING UPON ARRIVAL, INFUSING WITHOUT DIFFICULTY TO 22G LAC EMS SITE, APPEARS HEALTHY FREE OF REDNESS OR EDEMA, NO S/S OF INFILTRATION NOTED, WILL FOLLOW UP WITH ASSESSMENT AND MED SCHEDULE, EXPLAINED SAFETY MEASURES AND CALL LIGHT SYSTEM, PT VOICES UNDERSTANDING. WILL MONITOR CLOSELY.
[2017-07-29 23:00] VITALS: BP 134/72
[2017-07-29 23:15] VITALS: BP 138/80
[2017-07-29 23:30] VITALS: BP 127/69
[2017-07-30] VITALS (12 sets, daily range): BP systolic 113–132; BP diastolic 58–78
--- NOTE | 2017-07-30 00:32 | NUR ---
PT CONTINUES ASKING FOR HER XANAX, AND TYLENOL FOR HEADACHE, NOTIFIED DR. YOUNG, LEFT MESSAGE, WAITING FOR ORDERS. PT CONTINUES ON BIPAP, VSS, MILD ANXIETY NOTED, INSTRUCTED ON RELAXATION TECHNIQUES, KEEP ASKING FOR XANAX STATES, "I'LL TAKE THREE TIMES A DAY AT HOME." WILL CONTINUE TO MONITOR. CALL ESCOBAR AT REACH.
--- NOTE | 2017-07-30 01:20 | NUR ---
PT IS SLIGHTLY ANXIOUS, MEDICATED WITH XANAX PER ORDERS, AND TYLENOL FOR HEADACHE, INSTRUCTED ON RELAXATION TECH, PT ON BIPAP (23/03, RATE 20, FIO2 36%), VSS, AFEBRILE, SR ON MONITOR, HR 74. ENCOURAGED TO CALL IF NEEDED, CALL ESCOBAR AT REACH.
--- NOTE | 2017-07-30 03:11 | NUR ---
PT APPEARS TO BE SLEEPING WITH EYES CLOSED, VOICES NO COMPLAINTS AT THIS TIME, TOLERATEING BIPAP WELL, VSS, SR ON MONITOR, HR 60, RESP ARE EVEN AND UNLABORED, WILL CONTINUE TO MONITOR. CALL ESCOBAR AT REACH.
--- NOTE | 2017-07-30 05:08 | NUR ---
PT AWAKE, C/O SOB, SPO2 ON MONITOR, 95% ON BIPAP, APPEARS ANXIOUS, INSTRUCTED ON BREATHING TECHNIQUES, VSS, SR ON MONITOR, HR 68, CALLED MICHELLE SMALL FOR A BREATHING TX. WILL CONTINUE TO MONITOR PT CLOSELY.
[2017-07-30 05:36] LABS: ALBUMIN 3.9 g/dL (3.2-5.0); ALKALINE PHOSPHATASE 93 u/l (38-126); ANION GAP 17 (6-22 (CALC)); BILIRUBIN, TOTAL 0.5 mg/dL (0.0-1.4); BUN 16 mg/dL (7-17); BUN/CREATININE RATIO 26 (12-20 (CALC)); CALCIUM 9.6 mg/dL (8.4-10.2); CARBON DIOXIDE 27 mmol/l (22-30); CHLORIDE 100 mmol/l (95-108); CREATININE 0.6 mg/dL (0.5-1.0); GFR > 60 ML/MIN (>=60 (CALC)); GFR FOR AFR.AMER. > 60 ML/MIN (>=60 (CALC)); GLUCOSE 295 mg/dL (65-105); HEMATOCRIT 39.9 % (37.0-47.0); HEMOGLOBIN 12.3 g/dl (12.0-16.0); IMMATURE GRANULOCYTES 0.9 % (0.0-1.0); MEAN CELL VOLUME 88.7 fL CALC (80.0-100.0); MEAN CORPUSCULAR HGB 27.3 pG CALC (26.0-32.0); MEAN CORPUSCULAR HGB CONC 30.8 g/L CALC (32.0-36.0); NEUT# 12.72 thou/uL (2.00-7.15); POTASSIUM 4.9 mmol/l (3.5-5.1); RED BLOOD COUNT 4.5 mill/uL (4.20-5.60); SGOT/AST 21 u/l (14-36); SGPT/ALT 28 u/l (9-52); SODIUM 139 mmol/l (137-146); TOTAL PROTEIN 6.8 g/dL (6.3-8.2)
--- NOTE | 2017-07-30 05:45 | NUR ---
RT IN PT ROOM ADMINISTERING A BREATHING TX. PT C/O POUNDING HEADACHE, REQUESTING TYLENOL, WILL MEDICATE PER EMAR ORDERS. VSS, AFEBRILE.
--- NOTE | 2017-07-30 05:52 | NUR ---
NOTIFIED DR. YOUNG OF LAB RESULTS, GLUCOSE 295, FINGERSTICK 283, WAITING FOR ORDERS, AND ACTIVATION OF HOME MEDS.
--- NOTE | 2017-07-30 06:22 | NUR ---
PT CONTINUES CALLING ASKING FOR HER HOME MEDS THAT SHE TAKES AT 0600, EXPLAINED THAT HAS TO ORDER THEM FOR ADMINISTRATION AT THE HOSPITAL. STATES "WELL, THE HOSPITAL DON'T CARRY DALIRESP." EXPLAINED THAT PHARMACY HAS TO APPROVE IT IN ORDER FOR HER TO TAKE IT IN THE HOSPITAL. PT VOICES UNDERSTANDING, BUT KEEPS DEMANDING HOME MEDS. HOME MEDS IN MED ROOM, INVENTORY COMPLETED.
--- NOTE | 2017-07-30 07:20 | NUR ---
PT RESTING IN BED, BI PAP IN USE SEE FLOWSHEET FOR SETTINGS, AM ASSESSMENT COMPLETED SEE INTERVENTIONS, LUNGS DIMINSHED WITH WHEEZES, PT O2 DEPENDENT AT HOME, ALSO USE NEB MACHINE AT HOME, TELE READING SR RATE INT HE 80-90'S BP STABLE PT AFEBRILE, SKIN IS WARM DRY AND INTACT, NO BREAKDOWN NOTED IV ACCESS IN RAC EMS SITE, PT APPEARS COMFORTABLE ON BIPAP WITH NO DISTRESS NOTED, PLAN TO PLACE ON NC FOR AM MEAL AND MONITOR TOLERANCE. CALL ESCOBAR WITHIN REACH, ENCOURAGED TO CALL FOR ANY NEEDED ASSISTANCE.
--- NOTE | 2017-07-30 07:40 | NUR ---
PT PLACED ON 02 VIA NC @ 4L, TOLERATING WELL , AM MEAL SET UP ASSIST PROVIDED, PT INDEPENDENT WITH FEEDING, CALL ESCOBAR WITHIN REACH.
--- NOTE | 2017-07-30 08:35 | NUR ---
PT RESTING IN BED, CONTINUES TO TOLERATE BI PAP BEING OFF, DOZING AT PRESENT WITH NC AT 4L, SATS 93-94%, NO S/S OF DISTRESS NOTED, WILL CONTINUE TO MONITOR.
--- NOTE | 2017-07-30 09:35 | NUR ---
PT TOOK AM MEDIATIONS WELL AND WITHOUT INCIDENT.
--- NOTE | 2017-07-30 09:35 | NUR ---
AT BEDSIDE, PLAN OF CARE DISCUSSED.
[2017-07-30] MEDS ORDERED: PREDNISONE10 MG PO (09:50)
--- NOTE | 2017-07-30 10:57 | NUR ---
SPOKE WITH PATIENT AT LENGTH REGARDIGN, LUNG DISEASE DIAGNOISIS, PROGNOSIS, CODE STATUS ETC. PT VERBALIZES UNDERSTANDING. CALL ESCOBAR WITHIN REACH.
--- NOTE | 2017-07-30 11:15 | NUR ---
HH SELECTION SIGNED BY PATIENT CALL INTO [facility] (PER PT'S CHOICE) AWAITING RETURN CALL.
--- NOTE | 2017-07-30 11:25 | NUR ---
SET UP ASSIST PROVIDED FOR AFTERNOON MEAL, APPETITE GOOD, PT EATS WELL, OFFERS NO COMPLAINTS OF N/V, CALL ESCOBAR WITHIN REACH
--- NOTE | 2017-07-30 11:44 | NUR ---
SPOKE WITH JACQUE FORM ANATOLIY RAMOS.
--- NOTE | 2017-07-30 11:54 | NUR ---
PT RESTING SITTING UP ON EDGE OF BED AWAITING FRIEND FOR TRASNPORT HOME, RT NOTIFIED FO REQUEST FOR NEB TX PRIOR TO LEAVING, TOLERATED DIET WELL ATE 100% OF MEAL.
--- NOTE | 2017-07-30 12:02 | NUR ---
PT REQUESTING FOR MONITORING EQUIPMENT TO BE REMOVED FOR PENDING D/C, IV SITE REMOVED INTACT EARLIER, PT TOELRATED WELL, PRESCRIPTIONS FOR XANAX AND LORTAB PROVIDED TO PT, CALL ESCOBAR WITHIN REACH, PT CONTINUES TO AWAIT FRIEND FOR TRANSPORT HOME.
--- NOTE | 2017-07-30 12:30 | NUR ---
FRIEND AT BEDSIDE, WITH CLOTHES AND HOME O2 TANK, PT AWARE OF NEED TO DISCUSS HOME HEALTH WITH , VERBALIZES UNDERSTANDING. Discharge instructions given. Patient verbalizes understanding of same. Discharged in stable condition via Wheelchair to Home with friend. All belongings sent with pt.
== END 2017-07-30 12:30 | DRG 189 ==
LOC: ED 18:18 → ED-I 20:08 → ED 20:56 → ICU 20:57
PROVIDERS: Emergency Medicine; ADMIT Internal Medicine; ATTEND Internal Medicine
DX: J96.21 Acute and chronic respiratory failure with hypoxia (principal); I11.0 Hypertensive heart disease with heart failure; Z99.81 Dependence on supplemental oxygen; I50.9 Heart failure, unspecified; Q33.9 Congenital malformation of lung, unspecified; G89.29 Other chronic pain; M54.9 Dorsalgia, unspecified; F32.9 Major depressive disorder, single episode, unspecified; K80.20 Calculus of gallbladder without cholecystitis without obstruction; E09.9 Drug or chemical induced diabetes mellitus without complications; T38.0X5S Adverse effect of glucocorticoids and synthetic analogues, sequela; M81.8 Other osteoporosis without current pathological fracture; F41.1 Generalized anxiety disorder; Z87.891 Personal history of nicotine dependence; Z87.01 Personal history of pneumonia (recurrent); Z79.52 Long term (current) use of systemic steroids

== ENCOUNTER 2017-09-08 19:01 | Inpatient (IN) | payer MEDICAID ==
[~2017-09-08] VITALS: Ht 160 cm; Wt 87.4 kg
[~2017-09-08 19:01] MED LIST changes: +HYDROXYZ HCL25 MG PO
--- NOTE | 2017-09-08 19:15 | NUR ---
PT ARRIVED TO ER ROOM 12 VIA EMS. RT PAGED.
--- NOTE | 2017-09-08 19:40 | NUR ---
Pt very dyspnic upon arrival, NRB mask on. IV in right hand. Flushed easily.
--- NOTE | 2017-09-08 19:48 | NUR ---
PATIENT RECEIVED WITH 100% NON REBREATHER MASK. ABG DRAWN AND PLACED ON BIPAP FOR MAINTENANCE MD ORDERED. WITH THE FOLLOWING SETTING BIPAP 14/7, RATE OF 16, FIO2 35%. ABG RESULT ON [employer]. BREATHING TREATMENT GIVEN AFTER BEING ON BIPAP. WILL CONTINUE TO MONITOR THROUGHTOUT THE SHIFT.
--- NOTE | 2017-09-08 19:58 | NUR ---
Pt breathing much better with BiPAP on. Able to speak almost full sentences.
[2017-09-08 20:08] LABS: HEMATOCRIT 38.6 % (37.0-47.0); HEMOGLOBIN 12.1 g/dl (12.0-16.0); IMMATURE GRANULOCYTES 0.9 % (0.0-1.0); MEAN CORPUSCULAR HGB 28.2 pG CALC (26.0-32.0); MEAN CORPUSCULAR HGB CONC 31.3 g/L CALC (32.0-36.0); NEUT# 10.81 thou/uL (2.00-7.15); RED BLOOD COUNT 4.29 mill/uL (4.20-5.60); RED CELL DISTRI WIDTH 13.6 % (11.5-15.5)
[2017-09-08] MEDS ORDERED: NORCO1 TA1 PO (20:20)
[2017-09-08 20:22] LABS: ALBUMIN 3.9 g/dL (3.2-5.0); ALKALINE PHOSPHATASE 107 u/l (38-126); ANION GAP 16 (6-22 (CALC)); BILIRUBIN, TOTAL 0.4 mg/dL (0.0-1.4); BUN 11 mg/dL (7-17); BUN/CREATININE RATIO 16 (12-20 (CALC)); CARBON DIOXIDE 31 mmol/l (22-30); CHLORIDE 101 mmol/l (95-108); CREATININE 0.7 mg/dL (0.5-1.0); GFR > 60 ML/MIN (>=60 (CALC)); GFR FOR AFR.AMER. > 60 ML/MIN (>=60 (CALC)); POTASSIUM 4.2 mmol/l (3.5-5.1); SGOT/AST 18 u/l (14-36); SGPT/ALT 19 u/l (9-52); SODIUM 144 mmol/l (137-146); TOTAL PROTEIN 6.9 g/dL (6.3-8.2)
[2017-09-08 20:34] LABS: MYOGLOBIN 43 ng/mL (0 - 62)
--- NOTE | 2017-09-08 20:48 | NUR ---
Pt talking with visitor at this time, awaiting decision for admission.
--- NOTE | 2017-09-08 21:47 | NUR ---
REPORT CALLED TO ICU 8. LAB HERE TO DRAW 2ND LACTIC ACID.
[2017-09-08 22:30] VITALS: BP 159/88
--- NOTE | 2017-09-08 22:30 | NUR ---
RECEIVED FROM ER VIA STRETCHER ACCOMPANIED BY ER NURSE MELVIN RN, PT ON BIPAP 18/02. ABLE TO STAND AND TAKE A FEW STEPS TO BSC, VOIDING CLEAR YELLOW URINE, THEN TO BED. PT STATES "I NEED MY XANAX, I THINK I'M HAVING A PANIC ATTACK", ENCOURAGED PT TO CONCENTRATE ON RESPIRATIONS. O2 SAT 96%. ORDERS RECEIVED FOR MEDS BY DR. YOUNG PT AWARE AND WILL MEDICATE WHEN AVAILABLE. A/O X3, LUNG SOUNDS WHEEZY. PO FLUIDS IN REACH, ENCOURAGED TO USE CALL LIGHT FOR ASSISTANCE, WILL CONTINUE TO MONITOR.
[2017-09-08 23:00] VITALS: BP 117/79
[2017-09-08 23:15] VITALS: BP 137/82
[2017-09-08 23:30] VITALS: BP 150/82
[2017-09-08 23:45] VITALS: BP 142/86
[2017-09-09] VITALS (12 sets, daily range): BP systolic 107–154; BP diastolic 62–81
--- NOTE | 2017-09-09 02:16 | NUR ---
RESTING ON RIGHT SIDE WITH EYES CLOSED, RESPIRATIONS EVEN AND UNLABORED ON BIPAP. CALL LIGHT IN REACH.
--- NOTE | 2017-09-09 03:00 | NUR ---
OOB TO BSC, VOIDING CLEAR YELLOW URINE, BACK TO BED, CALL LIGHT IN REACH.
[2017-09-09 04:03] LABS: URINE BILIRUBIN - DIPSTICK NEGATIVE (NEGATIVE); URINE BLOOD DIPSTICK NEGATIVE (NEGATIVE); URINE COLOR YELLOW; URINE GLUCOSE - DIPSTICK >=1000 mg/dL (NEGATIVE); URINE KETONE 15 mg/dL (NEGATIVE); URINE LEUK ESTERASE NEGATIVE (NEGATIVE); URINE NITRITE - DIPSTICK NEGATIVE (Negative); URINE PROTEIN - DIPSTICK NEGATIVE (NEG-TRACE); URINE UROBILINOGEN - DIPSTICK 0.2 E.U./dL (0.2)
[2017-09-09 04:06] LABS: URINE CLARITY CLEAR
--- NOTE | 2017-09-09 05:40 | NUR ---
EMS SITE TO LFA DC'D WITH CATH TIP INTACT, TOLERATED WELL. NEW IV SITE STARTED TO LFA ON 1ST ATTEMPT, TOLERATED WELL.
--- NOTE | 2017-09-09 07:15 | NUR ---
PT WAS REMOVED FROM BIPAP AT THIS TIME. USING O2@ 4 LITERS WITH NC.
--- NOTE | 2017-09-09 07:25 | NUR ---
ASSESSMENT IS COMPLETED: PT IS RELAXING IN BED WITH NO DISTRESS NOTED. BREATH SOUNDS ARE WHEEZING. HR IS REG,PULSES ARE STRONGX4. ABD IS SOFT WITH ACTIVE BS.
--- NOTE | 2017-09-09 10:00 | NUR ---
PT IS VISITING WITH FAMILY AND FRIENDS NO DISTRESS NOTED.
[2017-09-09 11:53] LABS: CHOLESTEROL HDL RATIO 3.5 (<4.4 (CALC))
--- NOTE | 2017-09-09 12:30 | NUR ---
PT IS RELAXING IN BED WITH MO DISTRESS NOTED. IV SITE IS FREE FROM REDNESS OR EDEMA.
--- NOTE | 2017-09-09 13:15 | NUR ---
PT ASKING FOR A BREATHING TX. THEN REQUESTING TO BE PLACED BACK ON BIPAP
--- NOTE | 2017-09-09 15:00 | NUR ---
PT IS RELAXING IN BED WITH NO DISTRESS NOTED. IV SITE IS FREE FROM REDNESS OR EDEMA. BI PAP IN PLACE
--- NOTE | 2017-09-09 16:30 | NUR ---
PT IS REAXING IN BED WITH NO DISTRESS NOTED. IV SITE IS FREE FROM REDNESS OR EDEMA. BI PAP IN PLACE.
--- NOTE | 2017-09-09 20:00 | NUR ---
OOB TO BSC WITH STAND BY ASSISTANCE, ON O2 @4L VIA NC, O2 SAT 98%. B/P 122/70, HR 106. DENIES PAIN OR DISCOMFORT. LUNG SOUNDS DIMINISHED WITH SCATTERED WHEEZING. CALL LIGHT IN REACH.
--- NOTE | 2017-09-09 20:15 | NUR ---
BACK TO BED WITH MINIMAL ASSISTANCE, CALL LIGHT IN REACH.
--- NOTE | 2017-09-09 23:05 | NUR ---
PT IN BED TEXTING, RESPIRATIONS EVEN AND UNLABORED ON O2 @4L VIA NC, O2 SAT 94%. CALL LIGHT IN REACH.
[2017-09-10] VITALS (10 sets, daily range): BP systolic 100–148; BP diastolic 60–89
--- NOTE | 2017-09-10 01:31 | NUR ---
RESTING WITH EYES CLOSED, RESPIRATIONS EVEN AND UNLABORED ON OWN BIPAP FROM HOME, O2 SAT 87%, CALL LIGHT IN REACH.
--- NOTE | 2017-09-10 03:30 | NUR ---
RESTING WITH EYES CLOSED, HOME BIPAP IN PLACE O2 SAT 86% IN NO DISTRESS.
--- NOTE | 2017-09-10 04:15 | NUR ---
OOB TO BSC VOIDING CLEAR YELLOW URINE THEN BACK TO BED, HOME BIPAP IN PLACE O2 SAT UP TO 94% WA.
[2017-09-10 04:48] LABS: HEMATOCRIT 38.3 % (37.0-47.0); HEMOGLOBIN 11.9 g/dl (12.0-16.0); IMMATURE GRANULOCYTES 0.8 % (0.0-1.0); MEAN CELL VOLUME 91.8 fL CALC (80.0-100.0); MEAN CORPUSCULAR HGB 28.5 pG CALC (26.0-32.0); MEAN CORPUSCULAR HGB CONC 31.1 g/L CALC (32.0-36.0); NEUT# 13.69 thou/uL (2.00-7.15); RED BLOOD COUNT 4.17 mill/uL (4.20-5.60); RED CELL DISTRI WIDTH 13.3 % (11.5-15.5)
[2017-09-10 05:19] LABS: ANION GAP 19 (6-22 (CALC)); BUN 17 mg/dL (7-17); BUN/CREATININE RATIO 22 (12-20 (CALC)); CARBON DIOXIDE 28 mmol/l (22-30); CHLORIDE 103 mmol/l (95-108); CREATININE 0.8 mg/dL (0.5-1.0); GFR > 60 ML/MIN (>=60 (CALC)); GFR FOR AFR.AMER. > 60 ML/MIN (>=60 (CALC)); POTASSIUM 5.1 mmol/l (3.5-5.1); SODIUM 144 mmol/l (137-146)
--- NOTE | 2017-09-10 06:33 | NUR ---
RESTING ON RIGHT SIDE WITH EYES CLOSED, RESPIRATIONS EVEN AND UNLABORED ON OWN BIPAP FROM HOME, O2 SAT 89%. CALL LIGHT IN REACH.
--- NOTE | 2017-09-10 07:15 | NUR ---
PT LAYING IN BED RESTING WITH HOME CPAP ON, PT AROUSES EASILY TO VERBAL STIMULI, A & O X3, PERRL, HR 62, RESP. 20, BP 115/69, O2 97% ON PT'S HOME CPAP, LUNG SOUNDS DIMINISHED IN BASES WITH WHEEZES THROUGH OUT, 22G RF, NS INFUSING AT PRESCRIBED RATE, STRONG RADIAL AND PEDAL PULSES, AM ASSESSMENT COMPLETE, SEE INTERVENTIONS, SAFETY MEASURES REINFORCED, CALL ESCOBAR WITHIN REACH
--- NOTE | 2017-09-10 07:30 | NUR ---
SETUP ASSISTANCE PROVIDED WITH ASHLEY CHRISTIANSON
--- NOTE | 2017-09-10 08:20 | NUR ---
CALLED TO ROOM BY LISA MEYERS FOR BREATHING TX. B.S. BILATERAL WHEEZING IN LOBER LOBES. PT ON HOME BIPAP WITH 3L BLEED IN. SPO2 96%
--- NOTE | 2017-09-10 09:10 | NUR ---
PT ASSISTED TO THE BSC AND BACK TO BED, AMBULATED WITH A SLOW UNSTEADY GAIT, TOLERATED WELL, CALL ESCOBAR WITHIN REACH
--- NOTE | 2017-09-10 11:40 | NUR ---
SETUP ASSISTANCE PROVIDED WITH LUNCH TRAY
--- NOTE | 2017-09-10 12:10 | NUR ---
PT SITTING UP IN BED WATCHING TV, TOLERATING WELL, CALL ESCOBAR WITHIN REACH
--- NOTE | 2017-09-10 13:20 | NUR ---
PT ASSITED TO THE BSC AND BACK TO BED, PT AMBULATED WITH A SLOW UNSTEADY GAIT, CALL ESCOBAR WITHIN REACH
--- NOTE | 2017-09-10 15:35 | NUR ---
PT LAYING IN BED RESTING WITH EYES CLOSED, NO S/S OF DISTRESS, CALL ESCOBAR WITHIN REACH
--- NOTE | 2017-09-10 16:45 | NUR ---
PT ASSISTED TO CHAIR WITH MINIMAL ASSISTANCE, PT TOLERATED WELL, CALL ESCOBAR WITHIN REACH
--- NOTE | 2017-09-10 17:45 | NUR ---
PT SITTING UP IN CHAIR, TOLERATING WELL, CALL ESCOBAR WITHIN REACH
--- NOTE | 2017-09-10 19:15 | NUR ---
sitting in bedside chair. denies acute distress. o2 cont per nc. cardiac rn shows sinus rhythm pvcs. #24 rac saline lock. po fluids taken well. voids per bsc. @ bedside. fall precautions cont.
--- NOTE | 2017-09-10 20:15 | NUR ---
c/o curtis. tylenol 650mg po given.
--- NOTE | 2017-09-10 22:00 | NUR ---
lying in bed. no further c/o voiced.
--- NOTE | 2017-09-10 23:00 | NUR ---
restoril 15mg & xanax 1mg po given per request for sleep " nervousness.
--- NOTE | 2017-09-11 00:13 | NUR ---
eyes closed. no distress. home cpap machine on.
--- NOTE | 2017-09-11 02:00 | NUR ---
resting quietly. home cpap cont. no apparent distress.
--- NOTE | 2017-09-11 04:10 | NUR ---
lab here. blood drawn.
--- NOTE | 2017-09-11 04:45 | NUR ---
robitussin ac 10cc po per request for cough.
[2017-09-11 04:46] VITALS: BP 119/74
[2017-09-11 05:07] LABS: HEMATOCRIT 38.5 % (37.0-47.0); HEMOGLOBIN 12.2 g/dl (12.0-16.0); MEAN CELL VOLUME 89.5 fL CALC (80.0-100.0); MEAN CORPUSCULAR HGB 28.4 pG CALC (26.0-32.0); MEAN CORPUSCULAR HGB CONC 31.7 g/L CALC (32.0-36.0); RED BLOOD COUNT 4.3 mill/uL (4.20-5.60); RED CELL DISTRI WIDTH 13.4 % (11.5-15.5)
[2017-09-11 05:34] LABS: ANION GAP 19 (6-22 (CALC)); BUN 26 mg/dL (7-17); BUN/CREATININE RATIO 38 (12-20 (CALC)); CARBON DIOXIDE 25 mmol/l (22-30); CHLORIDE 102 mmol/l (95-108); CREATININE 0.7 mg/dL (0.5-1.0); GFR > 60 ML/MIN (>=60 (CALC)); GFR FOR AFR.AMER. > 60 ML/MIN (>=60 (CALC)); MAGNESIUM 1.7 mg/dL (1.6-2.3); POTASSIUM 4.4 mmol/l (3.5-5.1); SODIUM 141 mmol/l (137-146)
--- NOTE | 2017-09-11 06:00 | NUR ---
no acute change in condition this shift.
--- NOTE | 2017-09-11 07:05 | NUR ---
PT SITTING ON THE SIDE OF THE BED, TOLERATING WELL, A & O X3, VERBALIZES NO COMPLAINTS, HR 68, RESP. 22, BP 155/81, O2 94% ON HOME CPAP, LUNG SOUNDS DIMINISHED WITH WHEEZES THROUGHOUT, 24G RAC IV, SALINE LOCKED, NO REDNESS OR DRAINAGE AT SITE, STRONG RADIAL AND PEDAL PULSES, AM ASSESSMENT COMPLETE, SEE INTERVENTIONS, SAFETY MEASURES REINFORCED, CALL ESCOBAR WITHIN REACH
--- NOTE | 2017-09-11 07:30 | NUR ---
SETUP ASSISTANCE PROVIDED WITH ASHLEY CHRISTIANSON
[2017-09-11 08:00] VITALS: BP 155/81
[2017-09-11 10:00] VITALS: BP 178/82
--- NOTE | 2017-09-11 10:15 | NUR ---
DR HERNANDEZ AT BEDSIDE DISCUSSING PLAN OF CARE AND DISCHARGE PLANS
[2017-09-11] MEDS ORDERED: DOXYCYCL HYC100 MG PO (10:36)
[2017-09-11] MEDS ORDERED: XANAX1 MG PO (10:36)
[2017-09-11] MEDS ORDERED: PREDNISONE10 MG PO (10:36)
--- NOTE | 2017-09-11 11:05 | NUR ---
DISCHARGE INSTRUCTIONS GIVEN, PT VERBALIZED UNDERSTANDING, PT WAITING FOR RIDE TO COME FROM OUT OF TOWN
--- NOTE | 2017-09-11 11:30 | NUR ---
SETUP ASSISTANCE PROVIDED WITH LUNCH
--- NOTE | 2017-09-11 13:01 | NUR ---
Discharge instructions given. Patient verbalizes understanding of same. Discharged in stable condition via Wheelchair to Home with spouse. All belongings sent with pt.
== END 2017-09-11 12:55 | disposition home or self-care (01) | DRG 189 ==
LOC: ED 19:01 → ED-I 21:00 → ED 21:15 → ICU 21:16
PROVIDERS: Emergency Medicine; Internal Medicine; Nurse Practitioner Family; ADMIT Internal Medicine; ATTEND Internal Medicine
PROC: 5A09357 Assistance with Respiratory Ventilation, Less than 24 Consecutive Hours, Continuous Positive Airway Pressure (ICD-10-PCS; principal; 2017-09-08)
DX: J96.22 Acute and chronic respiratory failure with hypercapnia (principal); I11.0 Hypertensive heart disease with heart failure; I50.9 Heart failure, unspecified; Z99.81 Dependence on supplemental oxygen; E09.65 Drug or chemical induced diabetes mellitus with hyperglycemia; J44.1 Chronic obstructive pulmonary disease with (acute) exacerbation; J44.0 Chronic obstructive pulmonary disease with (acute) lower respiratory infection; K62.5 Hemorrhage of anus and rectum; J96.21 Acute and chronic respiratory failure with hypoxia; J20.9 Acute bronchitis, unspecified; F41.1 Generalized anxiety disorder; M81.8 Other osteoporosis without current pathological fracture; T38.0X5A Adverse effect of glucocorticoids and synthetic analogues, initial encounter; Z87.891 Personal history of nicotine dependence; Z79.84 Long term (current) use of oral hypoglycemic drugs
CPT/HCPCS: J3370

== ENCOUNTER 2017-11-28 04:59 | Inpatient (IN) | payer MEDICAID ==
[~2017-11-28] VITALS: Ht 165.1 cm; Wt 92.8 kg
[2017-11-28] VITALS (17 sets, daily range): BP systolic 104–168; BP diastolic 61–87
[2017-11-28 05:30] LABS: HEMATOCRIT 43.6 % (37.0-47.0); HEMOGLOBIN 13.3 g/dl (12.0-16.0); MEAN CELL VOLUME 91.4 fL CALC (80.0-100.0); MEAN CORPUSCULAR HGB 27.9 pG CALC (26.0-32.0); MEAN CORPUSCULAR HGB CONC 30.5 g/L CALC (32.0-36.0); NEUT# 8.56 thou/uL (2.00-7.15); RED BLOOD COUNT 4.77 mill/uL (4.20-5.60); RED CELL DISTRI WIDTH 13.1 % (11.5-15.5)
[2017-11-28 05:47] LABS: INTERNATIONAL NORMALIZED RATIO 0.9 RATIO (0.7-1.3); PROTHROMBIN TIME 10.1 SECONDS (9.0-12.5)
[2017-11-28 05:50] LABS: ALBUMIN 3.9 g/dL (3.2-5.0); ALKALINE PHOSPHATASE 132 u/l (38-126); ANION GAP 16 (6-22 (CALC)); BILIRUBIN, TOTAL 0.4 mg/dL (0.0-1.4); BUN 13 mg/dL (7-17); BUN/CREATININE RATIO 21 (12-20 (CALC)); CHLORIDE 95 mmol/l (95-108); CREATININE 0.6 mg/dL (0.5-1.0); GFR > 60 ML/MIN (>=60 (CALC)); GFR FOR AFR.AMER. > 60 ML/MIN (>=60 (CALC)); POTASSIUM 4.3 mmol/l (3.5-5.1); SGOT/AST 22 u/l (14-36); SGPT/ALT 38 u/l (9-52); SODIUM 140 mmol/l (137-146); TOTAL PROTEIN 7.5 g/dL (6.3-8.2)
[2017-11-28 05:51] LABS: CARBON DIOXIDE 33 mmol/l (22-30)
[2017-11-28 06:01] LABS: MYOGLOBIN 34 ng/mL (0 - 62)
[2017-11-29] VITALS (17 sets, daily range): BP systolic 96–139; BP diastolic 54–79
[2017-11-29 05:17] LABS: HEMATOCRIT 39.3 % (37.0-47.0); HEMOGLOBIN 12.5 g/dl (12.0-16.0); MEAN CELL VOLUME 89.1 fL CALC (80.0-100.0); MEAN CORPUSCULAR HGB 28.3 pG CALC (26.0-32.0); MEAN CORPUSCULAR HGB CONC 31.8 g/L CALC (32.0-36.0); RED BLOOD COUNT 4.41 mill/uL (4.20-5.60); RED CELL DISTRI WIDTH 12.8 % (11.5-15.5)
[2017-11-29 05:47] LABS: ANION GAP 19 (6-22 (CALC)); BUN 23 mg/dL (7-17); BUN/CREATININE RATIO 30 (12-20 (CALC)); CARBON DIOXIDE 31 mmol/l (22-30); CHLORIDE 92 mmol/l (95-108); CREATININE 0.8 mg/dL (0.5-1.0); GFR > 60 ML/MIN (>=60 (CALC)); GFR FOR AFR.AMER. > 60 ML/MIN (>=60 (CALC)); POTASSIUM 4.6 mmol/l (3.5-5.1); SODIUM 136 mmol/l (137-146)
[2017-11-30] VITALS (12 sets, daily range): BP systolic 84–148; BP diastolic 46–62
[2017-11-30 08:57] LABS: HEMOGLOBIN 12.3 g/dl (12.0-16.0); IMMATURE GRANULOCYTES 1.6 % (0.0-1.0); MEAN CELL VOLUME 90.1 fL CALC (80.0-100.0); MEAN CORPUSCULAR HGB 27.7 pG CALC (26.0-32.0); MEAN CORPUSCULAR HGB CONC 30.8 g/L CALC (32.0-36.0); NEUT# 8.68 thou/uL (2.00-7.15); RED BLOOD COUNT 4.44 mill/uL (4.20-5.60); RED CELL DISTRI WIDTH 13.2 % (11.5-15.5)
[2017-11-30 09:17] LABS: ANION GAP 14 (6-22 (CALC)); BUN 24 mg/dL (7-17); BUN/CREATININE RATIO 33 (12-20 (CALC)); CARBON DIOXIDE 34 mmol/l (22-30); CHLORIDE 96 mmol/l (95-108); CREATININE 0.7 mg/dL (0.5-1.0); GFR > 60 ML/MIN (>=60 (CALC)); GFR FOR AFR.AMER. > 60 ML/MIN (>=60 (CALC)); POTASSIUM 3.8 mmol/l (3.5-5.1); SODIUM 140 mmol/l (137-146)
[2017-12-01 04:05] VITALS: BP 121/60
[2017-12-01 07:32] VITALS: BP 104/63
[2017-12-01 08:04] VITALS: BP 104/63
[2017-12-01] MEDS ORDERED: XANAX1 MG PO (12:42)
[2017-12-01] MEDS ORDERED: PREDNISONE10 MG PO (12:42)
[2017-12-01] MEDS ORDERED: RESTORIL15 MG PO (12:42)
[2017-12-01] MEDS ORDERED: NORCO1 TA1 PO (12:42)
[2017-12-01] MEDS ORDERED: DOXYCYCL HYC100 MG PO (12:42)
[2017-12-01] MEDS ORDERED: LASIX 20 MG TAB20 MG PO (13:11)
== END 2017-12-01 15:58 | disposition home or self-care (01) | DRG 189 ==
LOC: ED 04:59 → ED-I 05:30 → ED 06:48 → ICU 06:49 → MS2 11-30 11:17
PROVIDERS: Emergency Medicine; Nurse Practitioner Family; ADMIT Internal Medicine; ATTEND Internal Medicine
PROC: 5A09357 Assistance with Respiratory Ventilation, Less than 24 Consecutive Hours, Continuous Positive Airway Pressure (ICD-10-PCS; principal; 2017-11-28)
DX: J96.22 Acute and chronic respiratory failure with hypercapnia (principal); E11.22 Type 2 diabetes mellitus with diabetic chronic kidney disease; I50.9 Heart failure, unspecified; J44.1 Chronic obstructive pulmonary disease with (acute) exacerbation; I13.10 Hypertensive heart and chronic kidney disease without heart failure, with stage 1 through stage 4 chronic kidney disease, or unspecified chronic kidney disease; N18.9 Chronic kidney disease, unspecified; Z99.81 Dependence on supplemental oxygen; I25.10 Atherosclerotic heart disease of native coronary artery without angina pectoris; E83.42 Hypomagnesemia; F32.9 Major depressive disorder, single episode, unspecified; G47.30 Sleep apnea, unspecified; I87.8 Other specified disorders of veins; M54.5 Low back pain; G89.29 Other chronic pain; T38.0X5A Adverse effect of glucocorticoids and synthetic analogues, initial encounter; M81.8 Other osteoporosis without current pathological fracture; F41.1 Generalized anxiety disorder; Z87.891 Personal history of nicotine dependence; Z79.84 Long term (current) use of oral hypoglycemic drugs
CPT/HCPCS: J1650; Q9967

== ENCOUNTER 2018-04-24 14:11 | Observation (INO) | payer MEDICAID ==
[~2018-04-24] VITALS: Ht 165.1 cm; Wt 88.0 kg
[2018-04-24 14:42] VITALS: BP 140/66
[2018-04-24 15:23] LABS: HEMATOCRIT 44.1 % (37.0-47.0); HEMOGLOBIN 13.4 g/dl (12.0-16.0); IMMATURE GRANULOCYTES 1.6 % (0.0-5.0); MEAN CELL VOLUME 89.8 fL CALC (80.0-100.0); MEAN CORPUSCULAR HGB 27.3 pG CALC (26.0-32.0); MEAN CORPUSCULAR HGB CONC 30.4 g/L CALC (32.0-36.0); NEUT# 12.52 thou/uL (2.00-7.15); RED BLOOD COUNT 4.91 mill/uL (4.20-5.60); RED CELL DISTRI WIDTH 13.6 % (11.5-15.5)
[2018-04-24 15:46] LABS: ALBUMIN 4.1 g/dL (3.2-5.0); ALKALINE PHOSPHATASE 127 u/l (38-126); ANION GAP 15 (6-22 (CALC)); BILIRUBIN, TOTAL 0.5 mg/dL (0.0-1.4); BUN 11 mg/dL (7-17); BUN/CREATININE RATIO 16 (12-20 (CALC)); CARBON DIOXIDE 32 mmol/l (22-30); CHLORIDE 98 mmol/l (95-108); CREATININE 0.7 mg/dL (0.5-1.0); GFR > 60 ML/MIN (>=60 (CALC)); GFR FOR AFR.AMER. > 60 ML/MIN (>=60 (CALC)); POTASSIUM 4.4 mmol/l (3.5-5.1); SGPT/ALT 37 u/l (9-52); SODIUM 141 mmol/l (137-146); TOTAL PROTEIN 7.6 g/dL (6.3-8.2)
[2018-04-24 15:47] LABS: DIGOXIN 0.6 ng/mL (0.8-2.0); SGOT/AST 33 u/l (14-36)
[2018-04-24 19:26] VITALS: BP 122/75
[2018-04-24 23:55] VITALS: BP 103/64
[2018-04-25 04:16] LABS: URINE BILIRUBIN - DIPSTICK NEGATIVE (NEGATIVE); URINE BLOOD DIPSTICK NEGATIVE (NEGATIVE); URINE COLOR YELLOW; URINE GLUCOSE - DIPSTICK NEGATIVE (NEGATIVE); URINE KETONE NEGATIVE (NEGATIVE); URINE LEUK ESTERASE NEGATIVE (NEGATIVE); URINE NITRITE - DIPSTICK NEGATIVE (Negative); URINE PROTEIN - DIPSTICK NEGATIVE (NEG-TRACE); URINE SPECIFIC GRAVITY 1.015; URINE UROBILINOGEN - DIPSTICK 0.2 E.U./dL (0.2)
[2018-04-25 04:27] LABS: URINE CLARITY CLEAR
[2018-04-25 04:46] VITALS: BP 107/66
[2018-04-25 05:16] LABS: HEMATOCRIT 39.3 % (37.0-47.0); IMMATURE GRANULOCYTES 1.5 % (0.0-5.0); MEAN CELL VOLUME 90.6 fL CALC (80.0-100.0); MEAN CORPUSCULAR HGB 27.6 pG CALC (26.0-32.0); MEAN CORPUSCULAR HGB CONC 30.5 g/L CALC (32.0-36.0); NEUT# 7.81 thou/uL (2.00-7.15); RED BLOOD COUNT 4.34 mill/uL (4.20-5.60); RED CELL DISTRI WIDTH 13.5 % (11.5-15.5)
[2018-04-25 05:53] LABS: ALBUMIN 3.4 g/dL (3.2-5.0); ALKALINE PHOSPHATASE 94 u/l (38-126); ANION GAP 11 (6-22 (CALC)); BILIRUBIN, TOTAL 0.3 mg/dL (0.0-1.4); BUN 9 mg/dL (7-17); BUN/CREATININE RATIO 15 (12-20 (CALC)); CARBON DIOXIDE 36 mmol/l (22-30); CHLORIDE 100 mmol/l (95-108); CREATININE 0.6 mg/dL (0.5-1.0); GFR > 60 ML/MIN (>=60 (CALC)); GFR FOR AFR.AMER. > 60 ML/MIN (>=60 (CALC)); SGOT/AST 22 u/l (14-36); SGPT/ALT 31 u/l (9-52); SODIUM 142 mmol/l (137-146); TOTAL PROTEIN 6.4 g/dL (6.3-8.2)
[2018-04-25 05:54] LABS: DIGOXIN 0.5 ng/mL (0.8-2.0)
[2018-04-25 08:08] VITALS: BP 104/67
[2018-04-25] MEDS ORDERED: LASIX 20 MG TAB20 MG PO (13:27)
[2018-04-25 16:00] VITALS: BP 131/68
[2018-04-25 19:54] VITALS: BP 124/74
[2018-04-26 03:48] VITALS: BP 127/71
[2018-04-26 06:00] LABS: HEMATOCRIT 36.6 % (37.0-47.0); HEMOGLOBIN 11.2 g/dl (12.0-16.0); IMMATURE GRANULOCYTES 1.2 % (0.0-5.0); MEAN CELL VOLUME 89.7 fL CALC (80.0-100.0); MEAN CORPUSCULAR HGB 27.5 pG CALC (26.0-32.0); MEAN CORPUSCULAR HGB CONC 30.6 g/L CALC (32.0-36.0); NEUT# 6.46 thou/uL (2.00-7.15); RED BLOOD COUNT 4.08 mill/uL (4.20-5.60); RED CELL DISTRI WIDTH 13.5 % (11.5-15.5)
[2018-04-26 06:14] LABS: ALBUMIN 3.1 g/dL (3.2-5.0); ALKALINE PHOSPHATASE 80 u/l (38-126); ANION GAP 12 (6-22 (CALC)); BILIRUBIN, TOTAL 0.3 mg/dL (0.0-1.4); BUN 10 mg/dL (7-17); BUN/CREATININE RATIO 16 (12-20 (CALC)); CARBON DIOXIDE 33 mmol/l (22-30); CHLORIDE 100 mmol/l (95-108); CREATININE 0.6 mg/dL (0.5-1.0); GFR > 60 ML/MIN (>=60 (CALC)); GFR FOR AFR.AMER. > 60 ML/MIN (>=60 (CALC)); POTASSIUM 3.7 mmol/l (3.5-5.1); SGOT/AST 19 u/l (14-36); SGPT/ALT 32 u/l (9-52); SODIUM 141 mmol/l (137-146); TOTAL PROTEIN 5.9 g/dL (6.3-8.2)
[2018-04-26 08:14] VITALS: BP 107/63
[2018-04-26 08:15] VITALS: BP 107/63
[2018-04-26] MEDS ORDERED: PREDNISONE10 MG PO (09:12)
== END 2018-04-26 15:15 | disposition home or self-care (01) ==
LOC: MS2 14:11
PROVIDERS: ADMIT Internal Medicine Geriatric Medicine; ATTEND Internal Medicine Geriatric Medicine
DX: K64.9 Unspecified hemorrhoids (principal); J44.9 Chronic obstructive pulmonary disease, unspecified; Z99.81 Dependence on supplemental oxygen; E66.9 Obesity, unspecified; Z68.32 Body mass index [BMI] 32.0-32.9, adult; Z99.3 Dependence on wheelchair; Z79.51 Long term (current) use of inhaled steroids; E11.9 Type 2 diabetes mellitus without complications; F41.1 Generalized anxiety disorder; F32.9 Major depressive disorder, single episode, unspecified; G89.29 Other chronic pain; F11.20 Opioid dependence, uncomplicated; I25.10 Atherosclerotic heart disease of native coronary artery without angina pectoris; K21.9 Gastro-esophageal reflux disease without esophagitis; K29.70 Gastritis, unspecified, without bleeding; M54.5 Low back pain; M81.0 Age-related osteoporosis without current pathological fracture; M40.209 Unspecified kyphosis, site unspecified; G47.30 Sleep apnea, unspecified; J20.9 Acute bronchitis, unspecified; J44.0 Chronic obstructive pulmonary disease with (acute) lower respiratory infection; J44.1 Chronic obstructive pulmonary disease with (acute) exacerbation
CPT/HCPCS: G0378; G0379; Q9967

== ENCOUNTER 2018-11-18 09:39 | Inpatient (IN) | payer MEDICAID ==
[2018-11-18] VITALS (11 sets, daily range): BP systolic 117–145; BP diastolic 58–79
[~2018-11-18] VITALS: Ht 165.1 cm; Wt 85.9 kg
[2018-11-18 10:09] LABS: HEMATOCRIT 42.7 % (37.0-47.0); HEMOGLOBIN 12.6 g/dl (12.0-16.0); IMMATURE GRANULOCYTES 2.2 % (0.0-5.0); MEAN CELL VOLUME 90.3 fL CALC (80.0-100.0); MEAN CORPUSCULAR HGB 26.6 pG CALC (26.0-32.0); MEAN CORPUSCULAR HGB CONC 29.5 g/L CALC (32.0-36.0); NEUT# 9.71 thou/uL (2.00-7.15); RED BLOOD COUNT 4.73 mill/uL (4.20-5.60)
[2018-11-18 10:36] LABS: ALKALINE PHOSPHATASE 101 u/l (38-126); BILIRUBIN, TOTAL 0.5 mg/dL (0.0-1.4); BUN 16 mg/dL (7-17); BUN/CREATININE RATIO 30 (12-20 (CALC)); CARBON DIOXIDE 31 mmol/l (22-30); CHLORIDE 99 mmol/l (95-108); CREATININE 0.5 mg/dL (0.5-1.0); GFR > 60 ML/MIN (>=60 (CALC)); GFR FOR AFR.AMER. > 60 ML/MIN (>=60 (CALC)); SGOT/AST 23 u/l (14-36); SODIUM 141 mmol/l (137-146)
[2018-11-18 10:41] LABS: ALBUMIN 4.5 g/dL (3.2-5.0); ANION GAP 16 (6-22 (CALC)); POTASSIUM 4.8 mmol/l (3.5-5.1); TOTAL PROTEIN 8.2 g/dL (6.3-8.2)
[2018-11-18] MEDS ORDERED: NORCO1 TA1 PO (11:42)
[2018-11-18] MEDS ORDERED: TEMAZEPAM15 MG PO (11:52)
[2018-11-18 12:30] LABS: URINE BILIRUBIN - DIPSTICK NEGATIVE (NEGATIVE); URINE BLOOD DIPSTICK NEGATIVE (NEGATIVE); URINE COLOR YELLOW; URINE GLUCOSE - DIPSTICK NEGATIVE (NEGATIVE); URINE KETONE NEGATIVE (NEGATIVE); URINE LEUK ESTERASE NEGATIVE (NEGATIVE); URINE NITRITE - DIPSTICK NEGATIVE (Negative); URINE PROTEIN - DIPSTICK NEGATIVE (NEG-TRACE); URINE UROBILINOGEN - DIPSTICK 0.2 E.U./dL (0.2)
[2018-11-19] VITALS (12 sets, daily range): BP systolic 114–142; BP diastolic 57–79
[2018-11-19 05:31] LABS: HEMATOCRIT 37.5 % (37.0-47.0); HEMOGLOBIN 11.2 g/dl (12.0-16.0); IMMATURE GRANULOCYTES 1.6 % (0.0-5.0); MEAN CELL VOLUME 89.7 fL CALC (80.0-100.0); MEAN CORPUSCULAR HGB 26.8 pG CALC (26.0-32.0); MEAN CORPUSCULAR HGB CONC 29.9 g/L CALC (32.0-36.0); NEUT# 11.97 thou/uL (2.00-7.15); RED BLOOD COUNT 4.18 mill/uL (4.20-5.60); RED CELL DISTRI WIDTH 13.7 % (11.5-15.5)
[2018-11-19 05:58] LABS: CHOLESTEROL HDL RATIO 3.1 (<4.4 (CALC))
[2018-11-19 05:59] LABS: ALBUMIN 3.8 g/dL (3.2-5.0); ALKALINE PHOSPHATASE 85 u/l (38-126); ANION GAP 15 (6-22 (CALC)); BILIRUBIN, TOTAL 0.3 mg/dL (0.0-1.4); BUN 17 mg/dL (7-17); BUN/CREATININE RATIO 33 (12-20 (CALC)); CARBON DIOXIDE 28 mmol/l (22-30); CHLORIDE 102 mmol/l (95-108); CREATININE 0.5 mg/dL (0.5-1.0); GFR > 60 ML/MIN (>=60 (CALC)); GFR FOR AFR.AMER. > 60 ML/MIN (>=60 (CALC)); POTASSIUM 4.9 mmol/l (3.5-5.1); SGOT/AST 17 u/l (14-36); SODIUM 139 mmol/l (137-146); TOTAL PROTEIN 6.6 g/dL (6.3-8.2)
[2018-11-20] VITALS (13 sets, daily range): BP systolic 125–141; BP diastolic 64–77
[2018-11-20 05:35] LABS: HEMATOCRIT 38.2 % (37.0-47.0); HEMOGLOBIN 11.1 g/dl (12.0-16.0); IMMATURE GRANULOCYTES 1.4 % (0.0-5.0); MEAN CELL VOLUME 90.5 fL CALC (80.0-100.0); MEAN CORPUSCULAR HGB 26.3 pG CALC (26.0-32.0); MEAN CORPUSCULAR HGB CONC 29.1 g/L CALC (32.0-36.0); NEUT# 13.58 thou/uL (2.00-7.15); RED BLOOD COUNT 4.22 mill/uL (4.20-5.60); RED CELL DISTRI WIDTH 13.6 % (11.5-15.5)
[2018-11-20 05:54] LABS: ANION GAP 12 (6-22 (CALC)); BUN 22 mg/dL (7-17); BUN/CREATININE RATIO 43 (12-20 (CALC)); CARBON DIOXIDE 33 mmol/l (22-30); CHLORIDE 99 mmol/l (95-108); CREATININE 0.5 mg/dL (0.5-1.0); GFR > 60 ML/MIN (>=60 (CALC)); GFR FOR AFR.AMER. > 60 ML/MIN (>=60 (CALC)); POTASSIUM 4.8 mmol/l (3.5-5.1); SODIUM 139 mmol/l (137-146)
[2018-11-21] VITALS: BP 138/63
[2018-11-21 02:00] VITALS: BP 148/79
[2018-11-21 04:00] VITALS: BP 148/76
[2018-11-21 05:40] LABS: HEMATOCRIT 40.2 % (37.0-47.0); HEMOGLOBIN 11.7 g/dl (12.0-16.0); IMMATURE GRANULOCYTES 1.9 % (0.0-5.0); MEAN CELL VOLUME 90.7 fL CALC (80.0-100.0); MEAN CORPUSCULAR HGB 26.4 pG CALC (26.0-32.0); MEAN CORPUSCULAR HGB CONC 29.1 g/L CALC (32.0-36.0); NEUT# 11.58 thou/uL (2.00-7.15); RED BLOOD COUNT 4.43 mill/uL (4.20-5.60); RED CELL DISTRI WIDTH 13.7 % (11.5-15.5)
[2018-11-21 06:00] VITALS: BP 139/68
[2018-11-21 06:15] LABS: ALBUMIN 3.9 g/dL (3.2-5.0); ALKALINE PHOSPHATASE 82 u/l (38-126); ANION GAP 14 (6-22 (CALC)); BILIRUBIN, TOTAL 0.3 mg/dL (0.0-1.4); BUN 25 mg/dL (7-17); BUN/CREATININE RATIO 40 (12-20 (CALC)); CARBON DIOXIDE 38 mmol/l (22-30); CHLORIDE 91 mmol/l (95-108); CREATININE 0.6 mg/dL (0.5-1.0); GFR > 60 ML/MIN (>=60 (CALC)); GFR FOR AFR.AMER. > 60 ML/MIN (>=60 (CALC)); POTASSIUM 4.4 mmol/l (3.5-5.1); SGOT/AST 14 u/l (14-36); SODIUM 139 mmol/l (137-146); TOTAL PROTEIN 6.6 g/dL (6.3-8.2)
[2018-11-21 08:00] VITALS: BP 145/73
[2018-11-21] MEDS ORDERED: PREDNISODT10 PO (08:22)
[2018-11-21] MEDS ORDERED: LEVAQUIN750 MG PO (08:22)
== END 2018-11-21 10:00 | disposition home or self-care (01) | DRG 189 ==
LOC: ED 09:39 → ED-I 11:03 → ED 11:52 → ICU 11:53 → ED 11:53 → ICU 11:53
PROVIDERS: Emergency Medicine; ADMIT Internal Medicine Geriatric Medicine; ATTEND Internal Medicine Geriatric Medicine
PROC: 5A09457 Assistance with Respiratory Ventilation, 24-96 Consecutive Hours, Continuous Positive Airway Pressure (ICD-10-PCS; principal; 2018-11-18)
PROC: 3E0234Z Introduction of Serum, Toxoid and Vaccine into Muscle, Percutaneous Approach (ICD-10-PCS; 2018-11-20)
DX: J96.22 Acute and chronic respiratory failure with hypercapnia (principal); J44.1 Chronic obstructive pulmonary disease with (acute) exacerbation; F19.20 Other psychoactive substance dependence, uncomplicated; J44.0 Chronic obstructive pulmonary disease with (acute) lower respiratory infection; J20.9 Acute bronchitis, unspecified; I10 Essential (primary) hypertension; E11.9 Type 2 diabetes mellitus without complications; I25.10 Atherosclerotic heart disease of native coronary artery without angina pectoris; G47.30 Sleep apnea, unspecified; F41.1 Generalized anxiety disorder; E66.01 Morbid (severe) obesity due to excess calories; M19.90 Unspecified osteoarthritis, unspecified site; Z99.81 Dependence on supplemental oxygen; Z68.31 Body mass index [BMI] 31.0-31.9, adult; Z23 Encounter for immunization; Z79.52 Long term (current) use of systemic steroids
CPT/HCPCS: J3475

== ENCOUNTER 2019-06-20 18:46 | Inpatient (IN) | payer MEDICAID ==
[~2019-06-20] VITALS: Ht 165.1 cm; Wt 83.9 kg
[~2019-06-20 18:46] MED LIST changes: +LEVAQUIN750 MG PO; +PREDNISODT10 PO
--- NOTE | 2019-06-20 18:46 | NUR ---
PT TO ROOM VIA EMS WITH HOME BIPAP IN PLACE
[2019-06-20 19:14] LABS: IMMATURE GRANULOCYTES 0.9 % (0.0-5.0); MEAN CELL VOLUME 87.8 fL CALC (80.0-100.0); MEAN CORPUSCULAR HGB 25.4 pG CALC (26.0-32.0); MEAN CORPUSCULAR HGB CONC 28.9 g/L CALC (32.0-36.0); NEUT# 8.75 thou/uL (2.00-7.15); RED BLOOD COUNT 4.33 mill/uL (4.20-5.60); RED CELL DISTRI WIDTH 14.6 % (11.5-15.5)
[2019-06-20 19:29] LABS: ALBUMIN 4.1 g/dL (3.2-5.0); ALKALINE PHOSPHATASE 88 u/l (38-126); ANION GAP 14 (6-22 (CALC)); BILIRUBIN, TOTAL 0.3 mg/dL (0.0-1.4); BUN 11 mg/dL (7-17); BUN/CREATININE RATIO 20 (12-20 (CALC)); CARBON DIOXIDE 33 mmol/l (22-30); CHLORIDE 101 mmol/l (95-108); CREATININE 0.5 mg/dL (0.5-1.0); GFR > 60 ML/MIN (>=60 (CALC)); GFR FOR AFR.AMER. > 60 ML/MIN (>=60 (CALC)); POTASSIUM 4.2 mmol/l (3.5-5.1); SGOT/AST 15 u/l (14-36); SODIUM 143 mmol/l (137-146); TOTAL PROTEIN 7.7 g/dL (6.3-8.2)
[2019-06-20 19:42] LABS: MYOGLOBIN 24 ng/mL (0 - 62)
--- NOTE | 2019-06-20 19:45 | NUR ---
FEELING BETTER. BREATHING IMPROVED.
--- NOTE | 2019-06-20 20:30 | NUR ---
RESTING COMFORTABLY PENDING DISPO.
--- NOTE | 2019-06-20 21:30 | NUR ---
NO CHANGE IN EXAM. VSS.
--- NOTE | 2019-06-20 22:23 | NUR ---
Admission Note Report Given to: LISA AYALA Transported by: Wheelchair X Stretcher Transported with: X Nurse Transporter X Patent IV X O2 X Quality Compliance Manager
--- NOTE | 2019-06-20 22:25 | NUR ---
BY STRETCHER TO FLOOR ON BIPAP.
--- NOTE | 2019-06-20 22:29 | NUR ---
PT ARRIVED TO FLOOR VIA STRETCHER ACCOMPAINED BY ER STAFF. PT ALERT AND ORIENTED. PT WEARING HOME BIPAP. NO APPARENT DISTRESS NOTED. IV SITE APPEARS HEALTHY. METAL GAUGE MAKER IN PLACE. PT AMBUALATED X1 ASSIST FROM STRETCHER TO BED. DISCUSSED POC AND ORIENTED TO ROOM AND CALL LIGHT SYSTEM. PT VERBALIZED UNDERSTANDING. CALL LIGHT WITHIN REACH. SNACK PROVIDED. WILL CONTINUE TO MONITOR.
[2019-06-20 22:39] VITALS: BP 127/79
[2019-06-20 23:58] VITALS: BP 131/82
--- NOTE | 2019-06-21 03:48 | NUR ---
PT MEDICATED FOR CHRONIC ABD PAIN 8-10. PT DENIES ANY OTHER WANTS OR NEEDS AT THIS TIME. CALL LIGHT WITHIN REACH. WILL CONTINUE TO MONITOR.
[2019-06-21 04:02] VITALS: BP 134/80
--- NOTE | 2019-06-21 08:05 | NUR ---
Pt consents to Pneumococcal vaccination, however received Pneumovax 11/20/18. Next pneumococcal vaccination not due until pt reaches 64 yrs old. No order for pneumococcal vaccination profiled.
[2019-06-21 08:30] VITALS: BP 147/62
--- NOTE | 2019-06-21 08:30 | NUR ---
ASSESSMENT IS COMPLETED: IV SITE IS FREE FROM REDNESS OR EDEMA. HR IS REG,PULSES ARE STRONG X4, ABD IS SOFT WITH ACTIVE BS. BREATH SOUNDS ARE CRACKLES AND EXPIRATORYU WHEEZING NOTED. TELE MONTIOR IN PLACE. C PAP IN USE DUE TO O2 LEVEL DROPS TO 85%. CONTINEU TO OSBERVE AND MONITOR.
[2019-06-21 11:10] VITALS: BP 113/52
--- NOTE | 2019-06-21 12:30 | NUR ---
pt c/o unable to breathe right. c pap in place. checked o2 sat is 90% with c pap, and 87% with nc. elana dubose.
--- NOTE | 2019-06-21 12:45 | NUR ---
PT IS RELAXING IN BED WITH CPAP MASK IN PLACE. CONTINUE TO OSBERVE AND MONITOR.
[2019-06-21 14:40] VITALS: BP 109/71
--- NOTE | 2019-06-21 15:19 | NUR ---
PT STATING " I DON'T THINK MY C PAP IS WORKING, I THINK I NEED TO BE IN ICU" INFORMED THE RESPIRATORY THERAPIST. SHE STATED' THE MACHINE IS WORKING". CONTINUE TO OSBERVE AND MONITOR.
--- NOTE | 2019-06-21 16:30 | NUR ---
LATE ENTRY: PT HAS BEEN RELAXING IN BED , VERY ANXIOUS ABOUT HER BREATHING AND C PAP MACHINE. IV SITE IS FREE FROM REDNESS OR EDMEA. ALE IVY SPOKE WITH PT PRIOR TO HER LEAVING. CONTINUE TO OSBERVE AND MONITOR.
[2019-06-21 18:49] VITALS: BP 138/92
--- NOTE | 2019-06-21 19:30 | NUR ---
PT SITTING ON SIDE OF BED, 02 4L NC, NO SIGNS OF DISTRESS NOTED, RESP EVEN AND UNLABORED. DISCUSSED POC, HOME CPAP AT BEDSIDE. IV ROCEPHIN INFUSION INITIATED. IV SITE EMS, DISCUSSED CHANGING IV SITE, PT STATES SHE IS A HARD STICK AND WOULD PREFER NOT TO BE STUCK AGAIN. IV FLUSHED, WELL. ASSESSMENT COMPLETED, CALL LIGHT IN REACH,CONTINUE TO MONITOR.
--- NOTE | 2019-06-21 21:00 | NUR ---
PT MEDICATED PER OCT, PT REQUESTING HER RESTORIL AND SINGULAIR. ORDERS NOT ENTERED, WILL NOTIFY
--- NOTE | 2019-06-21 22:30 | NUR ---
ORDERS ENTERED PER MD, PT MEDICATED WITH RESTORIL AND SINGULAIR, VOICES NO NEEDS OR COMPLAINTS AT THIS TIME. CALL LIGHT IN REACH,CONTINUE TO MONITOR.
[2019-06-21 23:49] VITALS: BP 111/52
--- NOTE | 2019-06-22 00:02 | NUR ---
PT RESTING IN BED WITH EYES CLOSED, RESP EVEN AND UNLABORED. CPAP IN PLACE, NO SIGNS OF DISTRESS NOTED, CALL LIGHT IN REACH,CONTINUE TO MONITOR.
--- NOTE | 2019-06-22 04:00 | NUR ---
PT RESTING IN BED WITH CPAP, NO SIGNS OF DISTRESS NOTED, RESP EVEN AND UNLABORED. CALL LIGHT IN REACH,CONTINUE TO MONITOR.
[2019-06-22 04:30] VITALS: BP 113/63
--- NOTE | 2019-06-22 06:04 | NUR ---
PT RESTING IN BED, IV SOLUMEDROL GIVEN, NO SIGNS OF DISTRESS NOTED, RESP EVEN AND UNLABORED, PT REQUESTING SNACK, INSTRUCTED AFTER ACCUCHECK, VERBALIZED UNDERSTANDING, CALL LIGHT IN REACH,CONTINUE TO MONITOR.
[2019-06-22 06:11] LABS: ANION GAP 15 (6-22 (CALC)); BUN 20 mg/dL (7-17); BUN/CREATININE RATIO 34 (12-20 (CALC)); CARBON DIOXIDE 29 mmol/l (22-30); CHLORIDE 99 mmol/l (95-108); CREATININE 0.6 mg/dL (0.5-1.0); GFR > 60 ML/MIN (>=60 (CALC)); GFR FOR AFR.AMER. > 60 ML/MIN (>=60 (CALC)); MAGNESIUM 1.6 mg/dL (1.6-2.3); POTASSIUM 4.5 mmol/l (3.5-5.1); SODIUM 139 mmol/l (137-146)
[2019-06-22 06:14] LABS: URINE BILIRUBIN - DIPSTICK NEGATIVE (NEGATIVE); URINE BLOOD DIPSTICK NEGATIVE (NEGATIVE); URINE COLOR YELLOW; URINE GLUCOSE - DIPSTICK NEGATIVE (NEGATIVE); URINE KETONE NEGATIVE (NEGATIVE); URINE LEUK ESTERASE NEGATIVE (NEGATIVE); URINE NITRITE - DIPSTICK NEGATIVE (Negative); URINE PROTEIN - DIPSTICK TRACE mg/dL (NEG-TRACE); URINE SPECIFIC GRAVITY 1.025; URINE UROBILINOGEN - DIPSTICK 0.2 E.U./dL (0.2)
[2019-06-22 06:19] LABS: HEMATOCRIT 37.1 % (37.0-47.0); IMMATURE GRANULOCYTES 1.6 % (0.0-5.0); MEAN CELL VOLUME 85.1 fL CALC (80.0-100.0); MEAN CORPUSCULAR HGB 25.2 pG CALC (26.0-32.0); MEAN CORPUSCULAR HGB CONC 29.6 g/L CALC (32.0-36.0); NEUT# 13.91 thou/uL (2.00-7.15); RED BLOOD COUNT 4.36 mill/uL (4.20-5.60); RED CELL DISTRI WIDTH 14.7 % (11.5-15.5)
--- NOTE | 2019-06-22 07:50 | NUR ---
ASSESSMENT IS COMPLETED: IV SITE IS FREE FROM REDNESS OR EDEMA. TOLD PM NURSE THAT " I AM A HARD STICK, I DON'T WANT IT CHANGED". FLUSHES WELL. HR IS REG, PULSES ARE STRONG X4, ABD IS SOFT WITH ACTIVE BS. BREATH SOUNDS ARE EXPIRATORY WHEEZING,AND CLEAR, BILATERALLY. O2 @ 4 LITERS WITH NC. TELE MONITOR IN PLACE. USES HER CPAP OFTEN HER O2 SATS ARE 90% WITH NC AT THIS TIME. CONTINUE TO OSBERVE AND MONITOR.
[2019-06-22 08:24] VITALS: BP 143/59
[2019-06-22 11:00] VITALS: BP 159/77
--- NOTE | 2019-06-22 12:30 | NUR ---
PT IS RELAXING ON THE SIDE OF THE BED WITH FAMILY IN THE ROOM. IV SITE IS FREE FROM REDNESS OR EDMEA.
--- NOTE | 2019-06-22 13:05 | NUR ---
DR HERNANDEZ IN TO VISIT WITH PT
[2019-06-22 15:15] VITALS: BP 163/70
--- NOTE | 2019-06-22 16:30 | NUR ---
PT IS RELAXING ON THE SIDE OF THE BED. VISITING WITH FAMILY. REQUEST TO HAVE HER DOOR SHUT. IV SITE IS FREE FROM REDNESS OR EDMA.
--- NOTE | 2019-06-22 19:00 | NUR ---
REPORT RECEIVED FROM VICKI GALLO.
[2019-06-22 19:25] VITALS: BP 118/53
--- NOTE | 2019-06-22 19:40 | NUR ---
PT SITTING UP IN BED ON LEFT SIDE; STATES THAT SHE ALWAYS RESTS ON HER LEFT SIDE FOR COMFORT AND BETTER BREATHING. RESPIRATIONS EVEN AND UNLABORED WITH CPAP MASK ON. C/O SOME LOWER BACK DISCOMFORT, BUT DECLINES PRN LORTAB. LUNGS ARE DIMINISHED WITH WHEEZING; TRACE EDEMA TO BILATERAL ANKLES. LARGE BRUISE NOTED TO POSTERIOR LEFT CALF WITH FIRMNESS ON PALPATION. IV SITE APPEARS HEALTHY AND FLUSHES; EMS SITE THAT PT STATES HAS REMAINED INTACT R/T POOR VENOUS ACCESS; NO SIGNS OF INFILTRATION OR PHLEBITIS. PLAN OF CARE REVIEWED PT ENCOURAGED TO VERBALIZE CONCERNS. STATES UNDERSTANDING AND REQUESTS FOR THE ROOM TO BE WARMER; ROOM WARMED AND FAN ON PER REQUEST. SAFETY MEASURES IN PLACE. CALL LIGHT WITHIN REACH.
--- NOTE | 2019-06-22 23:15 | NUR ---
RT AT BEDSIDE FOR BREATHING TREATMENT.
[2019-06-22 23:40] VITALS: BP 115/62
--- NOTE | 2019-06-22 23:53 | NUR ---
RESTORIL GIVEN AT THIS TIME PER REQUEST TO HELP HER SLEEP. ALSO RECHECKED BLOOD SUGAR PER REQUEST.
--- NOTE | 2019-06-23 03:30 | NUR ---
PT USED CALL LIGHT TO REQUEST A XANAX; STATES THAT RESTORIL WAS INEFFECTIVE FOR SLEEPLESSNESS AND SHE ONLY SLEPT FOR ONE HOUR. UP TO VOID IN BSC. BIPAP REMAINS IN PLACE. PT HAD SOME QUESTIONS ABOUT HER MEDICATIONS; ANSWERED TO SATISFACTION. NO OTHER REQUESTS OR CONCERNS AT THIS TIME. CALL LIGHT WITHIN REACH.
[2019-06-23 03:55] VITALS: BP 113/67
--- NOTE | 2019-06-23 05:39 | NUR ---
RT AT BEDSIDE FOR BREATHING TREATMENT.
--- NOTE | 2019-06-23 06:00 | NUR ---
PT STOOD ON STANDING SCALE WITH WEIGHT OF 185 LBS. UP TO VOID ON BSC.
--- NOTE | 2019-06-23 06:19 | NUR ---
PT ALLOWED NURSE TO START A 22G TO LAC; EMS SITE D/C'D. PT TOLERATED WELL.
--- NOTE | 2019-06-23 07:20 | NUR ---
PT A&O X3. RESTING IN BED. CPAP ON AT THE TIME. DIMINISHED BREATH SOUNDS. PT SHOWS SOME SIGNS OF ANXIETY. DISCUSSED POC. ASSESSMENT COMPLETED. CALL LIGHT WITHIN REACH. CONTINUE TO MONITOR.
[2019-06-23 07:24] VITALS: BP 131/67
[2019-06-23 07:29] LABS: HEMATOCRIT 41.4 % (37.0-47.0); HEMOGLOBIN 12.2 g/dl (12.0-16.0); IMMATURE GRANULOCYTES 1.6 % (0.0-5.0); MEAN CELL VOLUME 85.4 fL CALC (80.0-100.0); MEAN CORPUSCULAR HGB 25.2 pG CALC (26.0-32.0); MEAN CORPUSCULAR HGB CONC 29.5 g/L CALC (32.0-36.0); NEUT# 12.59 thou/uL (2.00-7.15); RED BLOOD COUNT 4.85 mill/uL (4.20-5.60); RED CELL DISTRI WIDTH 14.7 % (11.5-15.5)
[2019-06-23 07:43] LABS: ANION GAP 18 (6-22 (CALC)); BUN 26 mg/dL (7-17); BUN/CREATININE RATIO 37 (12-20 (CALC)); CARBON DIOXIDE 31 mmol/l (22-30); CHLORIDE 96 mmol/l (95-108); CREATININE 0.7 mg/dL (0.5-1.0); GFR > 60 ML/MIN (>=60 (CALC)); GFR FOR AFR.AMER. > 60 ML/MIN (>=60 (CALC)); POTASSIUM 4.6 mmol/l (3.5-5.1); SODIUM 140 mmol/l (137-146)
--- NOTE | 2019-06-23 09:37 | NUR ---
PT SITTING ON SIDE OF BED,VISITOR AT BEDSIDE, PT CALLED C/O ANXIETY. STATES FROM "[place]". PT MEDICATED WITH XANAX. CALL LIGHT IN REACH,CONTINUE TO MONITOR.
[2019-06-23 11:01] VITALS: BP 152/83
--- NOTE | 2019-06-23 12:00 | NUR ---
PT SITTING IN BED. CPAP IN USE. AT BEDSIDE. 2U OF INSULIN GIVEN. TOLERATED WELL. VOICES NO NEEDS AT THIS TIME. CALL LIGHT WITHIN REACH. CONTINUE TO MONITOR.
[2019-06-23 15:20] VITALS: BP 139/78
--- NOTE | 2019-06-23 15:40 | NUR ---
PT SITTING ON SIDE OF BED. NO FURTHER NEEDS AT THIS TIME. CALL LIGHT WITHIN REACH. CONTINUE TO MONITOR.
--- NOTE | 2019-06-23 16:28 | NUR ---
DISCUSSED CT WITH PT. FISHER WEIR AT BEDSIDE. EXPLAINED CT WILL BE DONE IN AM. PT VERBALIZED UNDERSTANDING.
--- NOTE | 2019-06-23 17:17 | NUR ---
PT RESTING IN BED. NO FURTHER NEEDS AT THIS TIME. CALL LIGHT WITHIN REACH. CONTINUE TO MONITOR.
[2019-06-23 19:35] VITALS: BP 133/64
--- NOTE | 2019-06-23 19:40 | NUR ---
pt medicated w/iv antibiotic therapy and assisted to bsc.
--- NOTE | 2019-06-24 00:30 | NUR ---
V/S ASSESSED, RESP IN TO SEE PT. CPAP IN PLACE. AIDE IN TO ASSIST PT TO RESTROOM, NO S/O DISTRESS. CALL LIGHT IS AT SIDE OF BED W/IN REACH.
[2019-06-24 00:55] VITALS: BP 118/56
[2019-06-24 05:15] VITALS: BP 120/62
[2019-06-24 05:44] LABS: HEMOGLOBIN 10.6 g/dl (12.0-16.0); IMMATURE GRANULOCYTES 1.6 % (0.0-5.0); MEAN CELL VOLUME 84.3 fL CALC (80.0-100.0); MEAN CORPUSCULAR HGB 25.2 pG CALC (26.0-32.0); MEAN CORPUSCULAR HGB CONC 29.9 g/L CALC (32.0-36.0); NEUT# 10.23 thou/uL (2.00-7.15); RED BLOOD COUNT 4.2 mill/uL (4.20-5.60); RED CELL DISTRI WIDTH 14.7 % (11.5-15.5)
[2019-06-24 06:00] LABS: HEMATOCRIT 35.4 % (37.0-47.0)
[2019-06-24 06:04] LABS: ANION GAP 15 (6-22 (CALC)); BUN 29 mg/dL (7-17); BUN/CREATININE RATIO 47 (12-20 (CALC)); CARBON DIOXIDE 29 mmol/l (22-30); CHLORIDE 99 mmol/l (95-108); CREATININE 0.6 mg/dL (0.5-1.0); GFR > 60 ML/MIN (>=60 (CALC)); GFR FOR AFR.AMER. > 60 ML/MIN (>=60 (CALC)); MAGNESIUM 1.6 mg/dL (1.6-2.3); POTASSIUM 4.3 mmol/l (3.5-5.1); SODIUM 139 mmol/l (137-146)
--- NOTE | 2019-06-24 06:08 | NUR ---
PT MEDICATED ORDERS PRVOIDE AND FOR AXIETY TO GO DOWN FOR CT SCAN. PT ASKING FOR OTHER MEDICATIONS THAT ARE NOT SCEDULED AT THIS TIME. DUONEB TREATMENT BEING ADMINISTERED AT THIS TIME. CALL LIGHT AT SIDE.
[2019-06-24 07:26] VITALS: BP 121/59
--- NOTE | 2019-06-24 07:26 | NUR ---
PT RESTING ON SIDE OF BED. A&O X3. BREATHING UNLABORED BUT DIMINISHED/WHEEZING BREATH SOUNDS. DISCUSSED POC. ASSESSMENT COMPLETED. CALL LIGHT WITHIN REACH. CONTINUE TO MONITOR.
--- NOTE | 2019-06-24 10:55 | NUR ---
PT RESTING IN BED. 2U OF INSULIN GIVEN. TOLERATED WELL. NO FURTHER NEEDS AT THIS TIME. CALL LIGHT IN REACH. CONTINUE TO MONITOR.
[2019-06-24 11:04] VITALS: BP 108/61
--- NOTE | 2019-06-24 12:37 | NUR ---
ED CALLED PT HAD A 4 BEAT RUN OF VTACH, VITALS OBTAINED 145/80, 100, 94%. PT IS WORRIED SHE MAY BE DISCHARGED TODAY. ASKING WHAT TIME IS THE GETTING HERE. EDDIE NOTIFIED OF VTACH, NO NEW ORDERS AT THIS TIME. CALL LIGHT IN REACH,CONTINUE TO MONITOR.
--- NOTE | 2019-06-24 13:35 | NUR ---
PT SITTING ON SIDE OF BED. VOICED THAT SHE NEEDED LOTION. LOTION GIVEN TO PT. NO FURHER NEEDS AT THIS TIME. CALL LIGHT WITHIN REACH. CONTINUE TO MONITOR.
[2019-06-24 15:23] VITALS: BP 138/70
[2019-06-24] MEDS ORDERED: DOXYCYCLINE100 MG PO (17:10)
[2019-06-24] MEDS ORDERED: MEDDOSEPAK PO (17:10)
--- NOTE | 2019-06-24 18:40 | NUR ---
Discharge instructions given. Patient verbalizes understanding of same. Discharged in stable condition via Wheelchair to Home with spouse. All belongings sent with pt.
== END 2019-06-24 18:40 | disposition home or self-care (01) | DRG 193 ==
LOC: ED 18:46 → ED-I 20:51 → ED 21:08 → MS2 21:10
PROVIDERS: Emergency Medicine; Internal Medicine; Nurse Practitioner Family; ADMIT Internal Medicine; ATTEND Internal Medicine
PROC: 3E02340 Introduction of Influenza Vaccine into Muscle, Percutaneous Approach (ICD-10-PCS; principal; 2019-06-21)
PROC: 5A09357 Assistance with Respiratory Ventilation, Less than 24 Consecutive Hours, Continuous Positive Airway Pressure (ICD-10-PCS; 2019-06-21)
DX: J18.9 Pneumonia, unspecified organism (principal); J96.22 Acute and chronic respiratory failure with hypercapnia; J96.21 Acute and chronic respiratory failure with hypoxia; J43.9 Emphysema, unspecified; I10 Essential (primary) hypertension; I50.9 Heart failure, unspecified; E09.8 Drug or chemical induced diabetes mellitus with unspecified complications; T38.0X5A Adverse effect of glucocorticoids and synthetic analogues, initial encounter; M81.8 Other osteoporosis without current pathological fracture; I25.10 Atherosclerotic heart disease of native coronary artery without angina pectoris; G47.33 Obstructive sleep apnea (adult) (pediatric); F41.1 Generalized anxiety disorder; G89.29 Other chronic pain; M54.9 Dorsalgia, unspecified; Z87.01 Personal history of pneumonia (recurrent); Z80.1 Family history of malignant neoplasm of trachea, bronchus and lung; Z88.1 Allergy status to other antibiotic agents; Z23 Encounter for immunization; Z79.52 Long term (current) use of systemic steroids; Z79.84 Long term (current) use of oral hypoglycemic drugs; Z99.81 Dependence on supplemental oxygen; Z87.891 Personal history of nicotine dependence

== ENCOUNTER 2019-07-06 14:32 | Observation (INO) | payer MEDICAID ==
[~2019-07-06] VITALS: Ht 165.1 cm; Wt 84.5 kg
[~2019-07-06 14:32] MED LIST changes: +DOXYCYCLINE100 MG PO; +MEDDOSEPAK PO
--- NOTE | 2019-07-06 14:32 | NUR ---
PT TO ROOM VIA EMS
--- NOTE | 2019-07-06 14:50 | NUR ---
PT MEDICATED PER MAR FOR NAUSEA AND PAIN RATING 10 OUT OF 10 FOR RUQ PAIN; MONITORING DEVICES IN PLACE; VSS; CALL LIGHT WITHIN REACH; WILL CONTINUE TO MONITOR
[2019-07-06 15:06] LABS: HEMATOCRIT 35.7 % (37.0-47.0); HEMOGLOBIN 10.5 g/dl (12.0-16.0); IMMATURE GRANULOCYTES 0.9 % (0.0-5.0); MEAN CELL VOLUME 86.7 fL CALC (80.0-100.0); MEAN CORPUSCULAR HGB 25.5 pG CALC (26.0-32.0); MEAN CORPUSCULAR HGB CONC 29.4 g/L CALC (32.0-36.0); NEUT# 8.76 thou/uL (2.00-7.15); RED BLOOD COUNT 4.12 mill/uL (4.20-5.60); RED CELL DISTRI WIDTH 14.9 % (11.5-15.5)
[2019-07-06 15:19] LABS: ALBUMIN 3.3 g/dL (3.2-5.0); ALKALINE PHOSPHATASE 64 u/l (38-126); AMYLASE 40 u/l (30-110); BUN 11 mg/dL (7-17); BUN/CREATININE RATIO 30 (12-20 (CALC)); CARBON DIOXIDE 26 mmol/l (22-30); CHLORIDE 102 mmol/l (95-108); CREATININE 0.4 mg/dL (0.5-1.0); ETHYL ALCOHOL 0 mg/dl (0-30); GFR > 60 ML/MIN (>=60 (CALC)); GFR FOR AFR.AMER. > 60 ML/MIN (>=60 (CALC)); LIPASE 36 u/l (23-300); SODIUM 136 mmol/l (137-146); TOTAL PROTEIN 6.4 g/dL (6.3-8.2)
[2019-07-06 15:21] LABS: ANION GAP 13 (6-22 (CALC)); BILIRUBIN, TOTAL 0.8 mg/dL (0.0-1.4); POTASSIUM 4.6 mmol/l (3.5-5.1); SGOT/AST 28 u/l (14-36)
--- NOTE | 2019-07-06 15:39 | NUR ---
PT ASSISTED TO BSC FOR UA; WITH ASSIST X 1; PT TOLERATED WITH EXERTIONAL SOB; MONITORING DEVICES IN PLACE; CALL LIGHT WITHIN REACH; WILL CONTINUE TO MONITOR
[2019-07-06 15:51] LABS: URINE BILIRUBIN - DIPSTICK NEGATIVE (NEGATIVE); URINE BLOOD DIPSTICK NEGATIVE (NEGATIVE); URINE COLOR YELLOW; URINE GLUCOSE - DIPSTICK NEGATIVE (NEGATIVE); URINE KETONE NEGATIVE (NEGATIVE); URINE LEUK ESTERASE NEGATIVE (NEGATIVE); URINE NITRITE - DIPSTICK NEGATIVE (Negative); URINE PH 5.5 (4.5-8.0); URINE PROTEIN - DIPSTICK NEGATIVE (NEG-TRACE); URINE SPECIFIC GRAVITY <=1.005; URINE UROBILINOGEN - DIPSTICK 0.2 E.U./dL (0.2)
[2019-07-06 16:17] LABS: BARBITURATES NEGATIVE (NEGATIVE); COCAINE NEGATIVE (NEGATIVE); METHADONE NEGATIVE (NEGATIVE); OXCYCODONE NEGATIVE (NEGATIVE); TETRAHYDROCANNABIONOL NEGATIVE (NEGATIVE); TRICYLIC ANTIDEPRESSANTS NEGATIVE (NEGATIVE)
[2019-07-06] MEDS ORDERED: ZOFRAN4 MG PO (16:28)
--- NOTE | 2019-07-06 16:28 | NUR ---
PT RESTING ON STRETCHER; NO S/S OF DISTRESS NOTED; VSS; NEB TX COMPLETED; PT DENIES ANY NEEDS AT THIS TIME; CALL LIGHT WITHIN REACH; WILL CONTINUE TO MONITOR
--- NOTE | 2019-07-06 17:15 | NUR ---
CONSENT OBTAINED FROM PT AND MOTHER AT THIS TIME; DENY ANY QUESTIONS; VSS; WILL CONTINUE TO MONITOR
--- NOTE | 2019-07-06 17:20 | NUR ---
PT RESTING ON STRETCHER; VSS; PT C/O ABD RETURNING; REQUESTING PAIN MEDICATION AT THIS TIME; CALL LIGHT WITHIN REACH; WILL CONTINUE TO MONITIOR
--- NOTE | 2019-07-06 18:20 | NUR ---
PT RESTING ON STRETCHER; NO S/S OF DISTRESS NOTED; VSS; PT INFORMED OF POC TO ADMIT; PT VERBALIZES UNDERSTANDING; CALL LIGHT WITHIN REACH; WILL CONTINUE TO MONITOR
--- NOTE | 2019-07-06 18:53 | NUR ---
REPORT GIVEN TO LISA ISLAS
--- NOTE | 2019-07-06 19:53 | NUR ---
PT. MYCHAL PACKED FOR TRANSFER TO ICU.
--- NOTE | 2019-07-06 20:12 | NUR ---
PT. TAKEN TO ICU VIA W/C NO C/O. BELONINGS WITH PT.
[2019-07-06 20:14] VITALS: BP 138/88
--- NOTE | 2019-07-06 20:15 | NUR ---
PATIENT ARRIVES VIA WC ACCOMPANIED BY ER NURSE ON NC 4L/MIN. ALERT AND ORIENTED X4. ABLE TO TRANSFER TO ICU BED7. SOB ON EXERTION. PATIENT REQUESTS PAIN MEDICATION AND A BREATHING TREATMENT. HEAD TO TOE NURSING ASSESSMENT PERFORMED, SEE CHARTING. MEDICATIONS AT BEDSIDE HAVE BEEN PLACED IN PHARMACY BAG AND CONTROLLED SUBSTANCES AHVE BEEN COUNTED WITH NURSE WITNESS IN FRONT OF PATIENT. POC FOR TONIGHT DISCUSSED. LFA EMS SITE WILL BE CHANGED. AFEBRILE. SR/ST ON TELEMTRY. PATIENT C/O OF PAIN ON ABDOMEN RATES 8, DR WILL BE NOTIFIED FOR PAIN MEDICTAION. BS CHECKED. PATIENT REPORTS SHE HAS DIARRHEA WITH BLOOD THAT HAS BEEN GOING ON FOR 1 YEAR OR MORE, WILL MONITOR. SELF REPOSITIONS. CALL LIGHT WITHIN REACH.
--- NOTE | 2019-07-06 21:42 | NUR ---
PATIENT RECEIVED PAIN MEDICATION, BREATHING TX AND NOW ON BIPAP. NEW IV WAS ALSO STARTED, EMS SITE DISCONTINUED.
--- NOTE | 2019-07-06 22:15 | NUR ---
PATIENT HAD BEDTIME SNACK, NOW BACK ON BIPAP. NO ACUTE DISTRES SHOWN.
[2019-07-07] VITALS (8 sets, daily range): BP systolic 100–150; BP diastolic 56–74
--- NOTE | 2019-07-07 00:10 | NUR ---
PATIENT REMAINS WITH BIPAP ON, RESTS WITH EYES CLOSED. NO ACUTE DISTRESS SHOWN. CALL LIGHT WITHIN REACH.
--- NOTE | 2019-07-07 02:57 | NUR ---
STANDBY ASSISTED PATIENT TO BSC. PT ABLE TO TRANSFER SAFELY TO AND FROM BSC. VOIDED CLEAR YELOOW URINE. PAIN MEDICATION GIVEN FOR C/O HEADACHE RATES 9. PATIENT ANXIOUS, REQESTS ANOTHER BREATHING TX, EXPLAINED IT IS NOT TIME FOR A TX YET, SATS 97%. CALL LIGHT WITHIN REACH.
--- NOTE | 2019-07-07 04:53 | NUR ---
PATIENT LAYS WITH HOB ABOUT 45 DEGREES, ON BIPAP, AROUSES EASILY WITH VERBAL STIMULI. AFEBRILE, SR ON TELEMETRY, SATS 96%. RESTS WITH EYES CLOSED. NO NEEDS OR COMPLAINTS AT THIS TIME.
[2019-07-07 05:57] LABS: HEMATOCRIT 39.1 % (37.0-47.0); HEMOGLOBIN 11.2 g/dl (12.0-16.0); IMMATURE GRANULOCYTES 0.6 % (0.0-5.0); MEAN CELL VOLUME 88.1 fL CALC (80.0-100.0); MEAN CORPUSCULAR HGB 25.2 pG CALC (26.0-32.0); MEAN CORPUSCULAR HGB CONC 28.6 g/L CALC (32.0-36.0); NEUT# 7.91 thou/uL (2.00-7.15); RED BLOOD COUNT 4.44 mill/uL (4.20-5.60); RED CELL DISTRI WIDTH 14.8 % (11.5-15.5)
[2019-07-07 06:13] LABS: ANION GAP 12 (6-22 (CALC)); BUN 10 mg/dL (7-17); BUN/CREATININE RATIO 21 (12-20 (CALC)); CHLORIDE 99 mmol/l (95-108); CREATININE 0.5 mg/dL (0.5-1.0); GFR > 60 ML/MIN (>=60 (CALC)); GFR FOR AFR.AMER. > 60 ML/MIN (>=60 (CALC)); MAGNESIUM 1.4 mg/dL (1.6-2.3); POTASSIUM 4.1 mmol/l (3.5-5.1); SODIUM 139 mmol/l (137-146)
[2019-07-07 06:22] LABS: CARBON DIOXIDE 32 mmol/l (22-30)
--- NOTE | 2019-07-07 06:45 | NUR ---
RECIEVED REPORT FROM LISA ISLAS. ASSUMED PT CARE.
--- NOTE | 2019-07-07 07:00 | NUR ---
PT A&0X3, ABLE TO MAKE NEEDS KNOWN. PT DENIES CP AT THIS TIME. RESPIRATIONS EVEN/UNLABORED, SA02@98% ON BIPAP. ABDOMEN SOFT,TENDER IN RUQ/LUQ, BSX4 ACTIVE, LBM 06-05-19. PT REPORTS STABBING PAIN 04/17 HEAD, WILL MEDICATE ORDERED. PT REQUESTING PERSONAL FAN, NONE AVAILABLE AT THIS TIME. PT REMINDED TO HAVE FAMILY BRING BIPAP. PT STATED THEY PROBABLY WON'T BUT SHE CAN GET THEM TO BRING HER A FAN. CALL LIGHT IN REACH. WILL MONITOR.
--- NOTE | 2019-07-07 09:00 | NUR ---
RT AT BEDSIDE FOR TX.
--- NOTE | 2019-07-07 10:00 | NUR ---
FRAN STANDBY. PT. ON [facility]
--- NOTE | 2019-07-07 11:19 | NUR ---
PT NOW ON PERSONAL BIPAP, PT CERTIFIED DIALYSIS TECHNICIAN LIGHT, STATED SHE FELT WARM, TEMP 98., THEN STATED HEADACHE PAIN 8/10, MEDICATED ORDERED, THEN STATED NAUSEA, MEDICATED REQUESTED. PT SON REMAINS AT BEDSIDE. CALL LIGHT IN REACH. WILL MONITOR.
--- NOTE | 2019-07-07 11:55 | NUR ---
DR. YOUNG AT BEDSIDE FOR ASSESSMENT AND TO DISCUSS PLAN OF CARE, NEW ORDERS RECIEVED. PT SWABBED TO R NARE FOR FLU CULTURE. PT TOLERATED WELL. COTINUES WITH HOME BIPAP IN PLACE. CALL LIGHT IN REACH. WILL MONITOR.
--- NOTE | 2019-07-07 13:52 | NUR ---
PT MEDICATED AT 1317 FOR HEADACHE, PT REPORTS LITTLE RELIEF, EDUCATED PT, TRIED RELAXATION TECH. OFFERED COOL CLOTH FOR HEAD.PT THEN ASSISTED TO BSC, BACK TO BED. CALL LIGHT IN REACH. WILL MONITOR.
--- NOTE | 2019-07-07 15:21 | NUR ---
PT ASSISTED TO BSC, THEN BACK TO BED. MEDICATED FOR HEADACHE PAIN 04/17, NAUSEA AND HIGH ANXIETY PER PT REQUEST. PT HAD LARGE LOOSE BM. CALL LIGHT IN REACH. WILL MONITOR.
--- NOTE | 2019-07-07 17:00 | NUR ---
PT FAMILY AT BEDSIDE FOR VISIT. PT DECLINED DINNER TRAY AT THIS TIME, STATED "I'M FEELING NAUSEOUS" WILL HOLD TRAY IN PT FRIDGE FOR LATER. PT ALREADY MEDICATED ORDERED. NO EMESIS THIS SHIFT. CALL LIGHT IN REACH. WILL MONITOR.
--- NOTE | 2019-07-07 18:35 | NUR ---
PT RESTING IN BED WITH EYES CLOSED, O2@4LPM VIA N/C, RESPIRATIONS EVEN/UNLABORED, SA02@95%. CALL LIGHT IN REACH, WILL MONITOR.
--- NOTE | 2019-07-07 20:00 | NUR ---
PLAN OF CARE REVIEWED WITH PATIENT AFTER REPORT AND ASSESSMENT COMPLETE. PT REQUEST BREATHING TREATMENT RT NOTIFIED. TIGHT END EXP WHEEZES BY AUSCULTATION WITH SOME SOB NOTED. PAIN ASSESSMENT REVIEWED AND WILL MEDICATE WITH RESULTS PENDING. OTHERWISE PLEASANT COOPERATIVE AND NO OTHER ISSUES TO ADDRESS AT THIS TIME.
--- NOTE | 2019-07-07 22:34 | NUR ---
POOR EFFECT WHEN MED PT WITH LORTAB AND XANAX AVAILABLE PRN. PT RATED HER PAIN LEVEL 9 AFTER MED RATED 8 BEFORE. APPEARS CALMER AND ABLE TO BRANDT BIPAP BETTER. HR 70S SR RR 18-20 AND 02 SAT 88-90%. NOW RATING PAIN IN HEAD AND ABDOMENT 10/10. MED WITH MORPHINE AND RESTORIL GIVEN FOR SLEEP. RESULTS PENDING. TURNED TV ON, LIGHTS OFF AND PT ADMITS TO BEING COMFORTABLE AT THIS TIME.
--- NOTE | 2019-07-08 02:30 | NUR ---
CONT TO BE MED WITH MORPHINE FOR PAIN SHARP IN HEAD AND RUQ WITH POOR RESULTS. ZOFRAN GIVEN FOR NAUSEA WITH MIN EFFECT. USING HOME BIPAP. ANXIOUS AT TIMES, EXPRESSED FRUSTRATION THAT SHE IS NOT GETTING THE CARE FOR HER CONDITION. EDUCATED UPDATE AND REFERRED TO PRIMARY MD.
[2019-07-08 04:30] VITALS: BP 128/62
--- NOTE | 2019-07-08 06:12 | NUR ---
PT DROWSY WITH LIGHT ON. HAS EMESSIS BAG IN HAND. STATES NAUSEA IS SUBSIDING SOME BUT NOT GOOD EFFECT WITH ZOFRAN.
--- NOTE | 2019-07-08 06:45 | NUR ---
RECIEVED REPORT FROM LISA AGUILERA. ASSUMED PT CARE.
[2019-07-08 08:00] VITALS: BP 107/66
--- NOTE | 2019-07-08 08:00 | NUR ---
PT SITTING UP ON SIDE OF BED, AT BEDSIDE. A&OX3, ABLE TO MAKE NEEDS KNOWN. PT REMAINS ON PERSONAL BIPAP, SA02@94 REQUESTING MEDICATION FOR PAIN8/10 IN HEAD AND ABDOMEN, CALL LIGHT IN REACH. WILL MONITOR.
[2019-07-08] MEDS ORDERED: OMNICEF300 MG PO (12:20)
[2019-07-08] MEDS ORDERED: LORTAB 1010 MG PO (12:21)
--- NOTE | 2019-07-08 12:38 | NUR ---
DR. YOUNG AT BEDSIDE FOR ASSESSMENT AND DISCUSS PLAN OF CARE. NEW ORDERS RECIEVED.
--- NOTE | 2019-07-08 13:00 | NUR ---
IV site discontinued, cath intact. No edema , no redness, voices no discomfort. RT AT BS FOR TX.
--- NOTE | 2019-07-08 13:55 | NUR ---
Discharge instructions given. Patient verbalizes understanding of same. Discharged in stable condition via Wheelchair to Home with family. All belongings sent with pt. PAPER SCRIPTS FOE ABT AND LORTAB 10/325MG SENT HOME WITH PT WELL ALL MEDS RETURNED FROM PHARMACY. PT TOOK HOME BIPAP MACHINE HOME WITH .
== END 2019-07-08 13:55 | disposition home or self-care (01) ==
LOC: ED 14:32 → ED-I 17:33 → ED 17:41 → ICU 17:42
PROVIDERS: ADMIT Internal Medicine; ATTEND Internal Medicine
DX: J18.9 Pneumonia, unspecified organism (principal); J44.1 Chronic obstructive pulmonary disease with (acute) exacerbation; J44.0 Chronic obstructive pulmonary disease with (acute) lower respiratory infection; J96.21 Acute and chronic respiratory failure with hypoxia; K80.20 Calculus of gallbladder without cholecystitis without obstruction; Z99.81 Dependence on supplemental oxygen; I10 Essential (primary) hypertension; E09.9 Drug or chemical induced diabetes mellitus without complications; M81.8 Other osteoporosis without current pathological fracture; T38.0X5S Adverse effect of glucocorticoids and synthetic analogues, sequela; F41.1 Generalized anxiety disorder; Z87.891 Personal history of nicotine dependence; Z79.84 Long term (current) use of oral hypoglycemic drugs
CPT/HCPCS: J3475; Q9967

== ENCOUNTER 2022-10-24 07:51 | Emergency (ER) | payer MEDICAID ==
[~2022-10-24] VITALS: Ht 165.1 cm; Wt 84.0 kg
[2022-10-24] VITALS (9 sets, daily range): BP systolic 111–144; BP diastolic 60–72
[~2022-10-24 07:51] MED LIST changes: +LORTAB 1010 MG PO; +ZOFRAN4 MG PO
[2022-10-24] MEDS ORDERED: PREDNISONE10 MG PO (08:32)
[2022-10-24 08:58] LABS: BASO% 0.4 % (0-3); HEMATOCRIT 36.7 % (37.0-47.0); HEMOGLOBIN 10.9 g/dl (12.0-16.0); IMMATURE GRANULOCYTES 0.4 % (0.0-5.0); LYMPH% 13.8 % (15-41); MEAN CORPUSCULAR HGB 24.5 pG CALC (26.0-32.0); MEAN CORPUSCULAR HGB CONC 29.7 g/dL CAL (32.0-36.0); MONO% 9.6 % (2-13); NEUT# 10.49 thou/uL (2.00-7.15); NEUT% 73.8 % (42-76); RED BLOOD COUNT 4.44 mill/uL (4.20-5.60); RED CELL DISTRI WIDTH 14.8 % (11.5-15.5)
[2022-10-24 09:00] LABS: MEAN CELL VOLUME 82.7 fL CALC (80.0-100.0)
[2022-10-24 09:07] LABS: ALBUMIN 3.9 g/dL (3.2-5.0); ALKALINE PHOSPHATASE 91 u/l (38-126); ANION GAP 14 (6-22 (CALC)); BILIRUBIN, TOTAL 0.5 mg/dL (0.02-1.3); BUN 11 mg/dL (8-23); BUN/CREATININE RATIO 16 (12-20 (CALC)); CARBON DIOXIDE 24 mmol/l (22-30); CHLORIDE 98 mmol/l (95-108); CREATININE 0.7 mg/dL (0.5-1.0); GFR FOR AFR.AMER. > 60 ML/MIN (>=60 (CALC)); GFR OTHER RACES > 60 ML/MIN (>=60 (CALC)); POTASSIUM 3.8 mmol/l (3.5-5.1); SGOT/AST 20 u/l (9-36); SODIUM 132 mmol/l (137-146); TOTAL PROTEIN 7.5 g/dL (6.3-8.2)
== END 2022-10-24 16:01 | disposition short-term general hospital (02) ==
LOC: ED 07:51
PROVIDERS: Family Medicine
DX: K31.1 Adult hypertrophic pyloric stenosis (principal); J44.1 Chronic obstructive pulmonary disease with (acute) exacerbation; J96.22 Acute and chronic respiratory failure with hypercapnia; J96.21 Acute and chronic respiratory failure with hypoxia; F41.1 Generalized anxiety disorder; E11.9 Type 2 diabetes mellitus without complications; Z79.84 Long term (current) use of oral hypoglycemic drugs
CPT/HCPCS: J2060

== ENCOUNTER 2024-07-22 00:19 | Inpatient (IN) | payer MEDICAID ==
[2024-07-22] VITALS (129 sets, daily range): BP systolic 76–167; BP diastolic 28–83
[~2024-07-22] VITALS: Ht 165.1 cm; Wt 96.6 kg
[2024-07-22] MEDS ORDERED: Fluconazole 200 mg Premix 100 ML IV ONE (00:30)
[2024-07-22 00:41] LABS: BASO% 0.4 % (0-3); EOS% 0.5 % (0-8); HEMATOCRIT 40.9 % (37.0-47.0); HEMOGLOBIN 10.9 g/dl (12.0-16.0); IMMATURE GRANULOCYTES 0.9 % (0.0-5.0); LYMPH% 7.8 % (15-41); MEAN CORPUSCULAR HGB 25.5 pG CALC (26.0-32.0); MEAN CORPUSCULAR HGB CONC 26.7 g/dL CAL (32.0-36.0); MONO% 7.8 % (2-13); NEUT# 8.5 thou/uL (2.00-7.15); NEUT% 82.6 % (42-76); RED BLOOD COUNT 4.28 mill/uL (4.20-5.60); RED CELL DISTRI WIDTH 16.3 % (11.5-15.5)
[2024-07-22 00:43] LABS: MEAN CELL VOLUME 95.6 fL CALC (80.0-100.0)
[2024-07-22] MEDS ORDERED: PROPOFOL 100 ML IV ONE (00:50)
[2024-07-22 00:52] LABS: ALKALINE PHOSPHATASE 131 u/l (38-126); BUN 22 mg/dL (8-23); BUN/CREATININE RATIO 24 (12-20 (CALC)); CHLORIDE 94 mmol/l (95-108); CPK 33 u/l (30-135); CREATININE 0.9 mg/dL (0.5-1.0); ESTIMATED GFR 71 ML/MIN (>=90 (CALC)); SGOT/AST 25 u/l (9-36); SODIUM 138 mmol/l (137-146); TOTAL PROTEIN 7.6 g/dL (6.3-8.2)
[2024-07-22 00:56] LABS: ANION GAP 15 (6-22 (CALC)); BILIRUBIN, TOTAL 0.9 mg/dL (0.02-1.3); CARBON DIOXIDE 34 mmol/l (22-30); POTASSIUM 5.3 mmol/l (3.5-5.1)
[2024-07-22 01:01] LABS: URINE BLOOD DIPSTICK Trace-lysed (NEGATIVE); URINE GLUCOSE - DIPSTICK Negative (NEGATIVE); URINE KETONE Negative (NEGATIVE); URINE LEUK ESTERASE Negative (NEGATIVE); URINE NITRITE - DIPSTICK Negative (Negative); URINE PH 5.5 (4.5-8.0); URINE PROTEIN - DIPSTICK >=300 mg/dL (NEG-TRACE); URINE SPECIFIC GRAVITY >=1.030; URINE UROBILINOGEN - DIPSTICK 0.2 E.U./dL (0.2)
[2024-07-22 01:02] LABS: URINE COLOR Yellow
[2024-07-22 01:09] LABS: URINE CASTS FEW lpf (NONE-RARE); URINE MUCUS FEW hpf (NONE-FEW); URINE RBC 0-2 RBC/hpf (0-5)
[2024-07-22] MEDS ORDERED: ALBUTEROL SULFATE 2.5 MG VIAL NEB ONE (02:25)
[2024-07-22] MEDS ORDERED: NYSTATIN 15 GM/TUBE TOP ONE (03:40)
[2024-07-22] MEDS ORDERED: SODIUM CHLORIDE 0.9% 1,000 ML IV PRN (04:50)
[2024-07-22] MEDS ORDERED: ACETAMINOPHEN 325 MG/TAB PO PRN (04:50)
[2024-07-22] MEDS ORDERED: MAGNESIUM HYDROXIDE 30 ML UDC PO PRN (04:50)
[2024-07-22] MEDS ORDERED: DOXYCYCLINE HYCLATE 100 MG in SODIUM CHLORIDE 0.9% 100 ML IV SCH (05:00)
[2024-07-22] MEDS ORDERED: CEFEPIME HYDROCHLORIDE 2 GM in SODIUM CHLORIDE 0.9% 100 ML IV SCH ×2 (05:00→14:00)
[2024-07-22] MEDS ORDERED: PROPOFOL 100 ML IV PRN (08:40)
[2024-07-22] MEDS ORDERED: HYDROmorphone HCL 2 MG/AMP IV PRN (08:45)
[2024-07-22] MEDS ORDERED: methylPREDNISolone Sod Succ 40 MG/ML SDV IV SCH (09:30)
[2024-07-22] MEDS ORDERED: HYDROmorphone HCL 2 MG/AMP IV SCH (09:30)
[2024-07-22] MEDS ORDERED: Pantoprazole Sodium 40 MG VIAL (Protonix) IV SCH (09:30)
[2024-07-22] MEDS ORDERED: NYSTATIN 15 GM/TUBE TOP SCH (10:00)
[2024-07-22] MEDS ORDERED: PIPERACILLIN Sodium-Tazobactam 4.5 GM in SODIUM CHLORIDE 0.9% 100 ML IV SCH (13:00)
[2024-07-22] MEDS ORDERED: DEXTROSE 250 ML IV PRN (13:55)
[2024-07-22] MEDS ORDERED: IPRATROPIUM-Albuterol 0.5MG-2.5MG/3 ML IN SCH (15:00)
[2024-07-22] MEDS ORDERED: METFORMIN500 M2 PO (15:00)
[2024-07-22] MEDS ORDERED: PROTONIX40 M2 PO (15:01)
[2024-07-22] MEDS ORDERED: VENTOLIN HFA108 MCG IN (15:01)
[2024-07-22] MEDS ORDERED: INSULIN LISPRO 100 UNITS/ML ML SC SCH (18:00)
[2024-07-22] MEDS ORDERED: ENOXAPARIN SODIUM 40 MG/0.4 ML SYR SC SCH (21:00)
[2024-07-22] MEDS ORDERED: FUROSEMIDE 40 MG/4 ML SDV IV SCH (22:50)
[2024-07-23] VITALS (45 sets, daily range): BP systolic 110–152; BP diastolic 43–97
[2024-07-23 06:18] LABS: BASO% 0.4 % (0-3); HEMATOCRIT 36.5 % (37.0-47.0); IMMATURE GRANULOCYTES 0.4 % (0.0-5.0); LYMPH% 5.2 % (15-41); MEAN CELL VOLUME 92.2 fL CALC (80.0-100.0); MEAN CORPUSCULAR HGB 25.3 pG CALC (26.0-32.0); MEAN CORPUSCULAR HGB CONC 27.4 g/dL CAL (32.0-36.0); MONO% 4.5 % (2-13); NEUT# 6.19 thou/uL (2.00-7.15); NEUT% 89.5 % (42-76); RED BLOOD COUNT 3.96 mill/uL (4.20-5.60); RED CELL DISTRI WIDTH 16.2 % (11.5-15.5)
[2024-07-23 06:36] LABS: ALBUMIN 3.2 g/dL (3.2-5.0); BILIRUBIN, TOTAL 0.6 mg/dL (0.02-1.3); MAGNESIUM 1.6 mg/dL (1.6-2.3); POTASSIUM 4.3 mmol/l (3.5-5.1); TOTAL PROTEIN 6.1 g/dL (6.3-8.2)
[2024-07-23 06:41] LABS: CREATININE 0.8 mg/dL (0.5-1.0)
[2024-07-24] VITALS (47 sets, daily range): BP systolic 92–156; BP diastolic 46–84
[2024-07-24 05:00] LABS: HEMATOCRIT 34.5 % (37.0-47.0); HEMOGLOBIN 9.9 g/dl (12.0-16.0); MEAN CELL VOLUME 88.9 fL CALC (80.0-100.0); MEAN CORPUSCULAR HGB 25.5 pG CALC (26.0-32.0); MEAN CORPUSCULAR HGB CONC 28.7 g/dL CAL (32.0-36.0); RED BLOOD COUNT 3.88 mill/uL (4.20-5.60); RED CELL DISTRI WIDTH 16.6 % (11.5-15.5)
[2024-07-24 05:24] LABS: ALBUMIN 3.1 g/dL (3.2-5.0); BILIRUBIN, TOTAL 0.6 mg/dL (0.02-1.3); CREATININE 0.8 mg/dL (0.5-1.0); MAGNESIUM 1.6 mg/dL (1.6-2.3); POTASSIUM 3.6 mmol/l (3.5-5.1)
[2024-07-24] MEDS ORDERED: FUROSEMIDE 40 MG/4 ML SDV IV SCH ×2 (07:30→16:30)
[2024-07-25] VITALS (163 sets, daily range): BP systolic 78–164; BP diastolic 48–97
[2024-07-25 05:42] LABS: ALBUMIN 3.2 g/dL (3.2-5.0); BILIRUBIN, TOTAL 0.7 mg/dL (0.02-1.3); CREATININE 0.7 mg/dL (0.5-1.0); MAGNESIUM 1.6 mg/dL (1.6-2.3); POTASSIUM 3.3 mmol/l (3.5-5.1); TOTAL PROTEIN 5.9 g/dL (6.3-8.2)
[2024-07-25 05:54] LABS: HEMATOCRIT 33.4 % (37.0-47.0); HEMOGLOBIN 9.7 g/dl (12.0-16.0); MEAN CELL VOLUME 89.5 fL CALC (80.0-100.0); RED BLOOD COUNT 3.73 mill/uL (4.20-5.60); RED CELL DISTRI WIDTH 16.6 % (11.5-15.5)
[2024-07-25] MEDS ORDERED: POTASSIUM CHLORIDE 20MEQ 100 ML IV SCH (08:00)
[2024-07-25] MEDS ORDERED: MAGNESIUM SULFATE HEPTAHYDRATE 50 ML IV SCH (08:00)
[2024-07-25] MEDS ORDERED: FUROSEMIDE 40 MG/4 ML SDV IV SCH (11:30)
[2024-07-25] MEDS ORDERED: ETOMIDATE 20 MG/10 ML SDV IV ONE (12:03)
[2024-07-25] MEDS ORDERED: SUCCINYLCHOLINE CHLORIDE 20 MG/ML 10ML VIAL IV ONE (12:03)
[2024-07-25] MEDS ORDERED: traMADol HCL 50 MG/TAB PO PRN (12:45)
[2024-07-25] MEDS ORDERED: LORazepam 2 MG/ML IV SCH (16:30)
[2024-07-25] MEDS ORDERED: dilTIAZem HCL 60 MG/TAB PO SCH (17:00)
[2024-07-25] MEDS ORDERED: PROPOFOL 100 ML IV ONE (17:35)
[2024-07-25] MEDS ORDERED: diazePAM 10 MG/2 ML VIAL IV SCH (18:35)
[2024-07-26 00:04] VITALS: BP 127/61
== END 2024-07-26 00:22 | disposition short-term general hospital (02) | DRG 208 ==
LOC: ED 00:19 → ED-I 04:40 → ED 06:38 → ICU 06:39
PROVIDERS: Family Medicine; ADMIT Internal Medicine; ATTEND Internal Medicine
PROC: 5A1945Z Respiratory Ventilation, 24-96 Consecutive Hours (ICD-10-PCS; principal; 2024-07-22)
PROC: 5A1935Z Respiratory Ventilation, Less than 24 Consecutive Hours (ICD-10-PCS; 2024-07-25)
PROC: 5A09357 Assistance with Respiratory Ventilation, Less than 24 Consecutive Hours, Continuous Positive Airway Pressure (ICD-10-PCS; 2024-07-25)
PROC: 0BH17EZ Insertion of Endotracheal Airway into Trachea, Via Natural or Artificial Opening (ICD-10-PCS; 2024-07-25)
PROC: 05H533Z Insertion of Infusion Device into Right Subclavian Vein, Percutaneous Approach (ICD-10-PCS; 2024-07-25)
DX: J96.22 Acute and chronic respiratory failure with hypercapnia (principal); J15.1 Pneumonia due to Pseudomonas; J44.0 Chronic obstructive pulmonary disease with (acute) lower respiratory infection; E87.29 Other acidosis; J44.1 Chronic obstructive pulmonary disease with (acute) exacerbation; J96.21 Acute and chronic respiratory failure with hypoxia; B88.8 Other specified infestations; E87.5 Hyperkalemia; E09.9 Drug or chemical induced diabetes mellitus without complications; T38.0X5A Adverse effect of glucocorticoids and synthetic analogues, initial encounter; I10 Essential (primary) hypertension; F41.1 Generalized anxiety disorder; R00.1 Bradycardia, unspecified; I49.3 Ventricular premature depolarization; L30.4 Erythema intertrigo; Z99.81 Dependence on supplemental oxygen; Z87.891 Personal history of nicotine dependence; Z79.84 Long term (current) use of oral hypoglycemic drugs; I47.9 Paroxysmal tachycardia, unspecified
CPT/HCPCS: J0692; J0696; J1171; J1650; J1815; J1940; J2060; J2470; J2543; J2704; J3475; J3480; Q9967